=== PATIENT | female | born 1990 | race Caucasian/White ===

== ENCOUNTER 2022-06-04 14:36 | Inpatient (IN) ==
[2022-06-04] MEDS ORDERED: OXYTOCIN 30 UNITS/500 ML BAG IV PRN (15:07)
[2022-06-04] MEDS ORDERED: LIDOCAINE 1% LOCAL 20 ML VIAL INFIL PRN (15:07)
[2022-06-04] MEDS ORDERED: BETAMETH SOD PHOS/ACETATE IA 6 MG/ML IM STA (15:07)
[2022-06-04] MEDS ORDERED: AZITHROMYCIN 250 MG TAB PO ONE (15:09)
[2022-06-04] MEDS ORDERED: AMPICILLIN 2,000 MG in SODIUM CHLOR 0.9% AD-VAN 100 ML IV SCH (15:15)
--- NOTE | 2022-06-04 15:19 | History & Physical Report ---
Date of Service June 04, 2022 Assessment & Plan (1) premature rupture of membranes, unspecified as to length of time between rupture and onset of labor, third trimester: Plan: Admit, routine labs, iv fluids GBS and UDS Betamethasone 12 mg IM every 24 hours x2 doses Azithromycin 1 g p.o., ampicillin 2 g every 6 hours for 48 hours for latency Sold at bedside as she is premature rupture of membranes, that she needs to stay in the hospital until delivery. Routinely restart induction of labor at 34 weeks, which is tomorrow, however due to not having an NICU, ideally if patient is not in labor and makes no cervical change to try to transfer her in the morning. Otherwise we will need to deliver here, and will be transferred after delivery. Discussed the increased risk of infection such as chorioamnionitis. Compared to expectant management until 37 weeks planned early does increase the risk of severe adverse outcomes such as respiratory distress syndrome, need for mechanical ventilation, and admission to NICU and n eonatal . It does not reduce the risk of all outcomes such as sepsis positive blood cultures, and over all mortality or . Per a cog suggests delivery for all patients with PROM greater than 37 weeks either expectant management or immediate delivery for those from 34 0/7 and 36 6/7 with expectant management before 34 weeks. Patient is aware we will move forward with delivery if signs of infection, distress or other maternal or indications (2) Elevated BP without diagnosis of hypertension: Plan: Elevated blood pressure 143/87 on admission, will get PIH labs at this time (3) Rh negative status during in third trimester: (4) Obesity, Class II, BMI 35-39.9: Plan: Last EFW 97th percentile (5) Recurrent loss in patient in third trimester, antepartum: (6) 33 weeks gestation of : History of Present Illness Chief Complaint: [facility] Primary Care Provider: Yokasta Morales DO Patient is a 32-year-old -0-3-0 at 33 weeks and 6 days who presents for leaking of fluid. Patient had called answering service for ongoing vaginal discharge for the last several weeks, but felt big gush of fluid at approximately 1:30 PM. She then describes ongoing leaking of fluid saturating pads afterwards. She called and I informed her to come to labor and delivery. On presentation, noted ongoing clear vaginal discharge with Valsalva and positive nitrazine formed by nursing staff. She denies vaginal bleeding, states she is having cramping but unsure if she is having contractions. Notes good movement. Denies headache, blurry vision, right upper quadrant or epigastric pain. Otherwise feeling well has been complicated by class II obesity, depression with anxiety, recurrent loss and excessive growth on last ultrasound Allergies Allergy/AdvReac Type Severity Reaction Status Date / Time Penicillins Allergy Unknown as a child Verified 04/29/21 14:30 fentanyl AdvReac Mild Insomnia Verified 05/02/21 10:12 Home Medications Medication Instructions Recorded Confirmed Type coenzyme Q10 100 mg capsule 100 mg PO QAM 12/29/20 05/02/21 History (CoQ-10) fluoxetine 40 mg capsule (Prozac) 40 mg PO QAM 12/29/20 05/02/21 History vit no.133-ferrous 1 tab PO QAM 12/29/20 05/02/21 History fumarate 28 mg-folic acid 800 mcg tablet () ibuprofen 600 mg tablet 600 mg PO Q6H #30 tabs 05/02/21 Rx Patient History Medical History Anxiety Depression History of COVID-19 Late Jun or Early July 2020. Headache, sore throat, sinus congestion, fatigue. No current symptoms. No hospitalization Surgical History H/O wisdom tooth extraction History of dilatation and curettage (~12/2020) D&E History of myringotomy BMT Hx of tonsillectomy Family History Other No family history of adverse response to anesthesia Social History Smoking Status: Never smoker Second Hand Exposure: No; Hx Alcohol Use: Yes Hx Substance Use: No Preferred Language: Sami Communication Ability: Effective Aquatics Coordinator Required: No Beliefs That Will Affect Care: None Current Living Situation: Spouse Feels Safe at Home: Yes Assistive Devices: Contacts and Glasses OB History [employer] History See record Review of Systems All systems reviewed & are unremarkable except as noted in HPI & below Physical Exam Constitutional: WD/WN, vitals as above Neck: trachea midline, no thyromegaly Respiratory: normal respiratory effort, lungs clear to auscultation Cardiovascular: RRR, no murmur, no edema Gastrointestinal (Abdomen): normal bowel sounds, soft, nontender, no hepatosplenomegaly Skin: no rashes, warm and dry Genitourinary: Sterile speculum exam: Valsalva positive, hair at cervical os appears to be 4 to 5 cm dilated Nikki, grossly ruptured Cervix: 5/80/-2, no cord felt Results & Data ([facility]) Vital Signs (Past 12 Hours) Vital Signs Pulse BP 06/04/22 14:58 70 143/87 H 06/04/22 14:42 77 160/99 H Laboratory Results Pending Monitoring External Monitor FHT: Baseline 1 35-1 40, moderate variability, positive accelerations no decelerations, category 1 tracing Tocodynamometer Tocometer: Irritable, however after tocometer was adjusted noted contractions every 3 to 4 minutes
[2022-06-04] MEDS ORDERED: NIFEdipine EXTENDED REL 30 MG TABCR PO STA (15:35)
[2022-06-04 15:41] LABS: Hematocrit (blood only) 37.3 % (34.1-44.9); Hemoglobin 12.8 g/dl (12.0-16.0); Mean Corpuscular Hgb Conc 34.3 g/dL (32.0-36.0); Mean Corpuscular Volume 84.6 fL (80.0-100.0); Platelet Count 243 K/uL (130-400); RDW Coefficient of Variation 14.7 % (11.5-14.5); RDW Standard Deviation 45.2 fL (36.4-46.3); Red Blood Count 4.41 M/uL (3.93-5.22); White Blood Count 11.96 K/ul (4.8-10.8)
[2022-06-04] MEDS ORDERED: GENTAMICIN CONSULT ACTIVE PRN (15:47)
[2022-06-04] MEDS: LACTATED RINGER'S 1,000 ML IV PRN ×2 (15:50→17:31)
[2022-06-04 15:56] LABS: Amphetamines+Metham, Urine Neg (Neg); Barbiturates, Urine Neg (Neg); Benzodiazepine, Urine Neg (Neg); Cocaine, Urine Neg (Neg); MDMA (Ecstacy), Urine Neg (Neg); Methadone, Urine Neg (Neg); Opiate, Urine Neg (Neg); Phencyclidine, Urine Neg (Neg); Protein Creatinine Ratio Urine 0.7 (0-0.2)
[2022-06-04 16:06] LABS: Albumin Globulin Ratio 1.1 (0.9-2); Albumin Level 3.4 gm/dl (3.4-5.0); BUN Creatinine Ratio 18.9 (10-20); Bilirubin,Total 0.3 mg/dl (0.2-1.0); Calcium 9.2 mg/dl (8.5-10.1); Creatinine Clr Calc Pharmacy 121.6 ml/min; Est GFR (African American) 98.7 ml/min; Est GFR (Non-African American) 85.2 ml/min; Globulin 3.2 gm/dl (2.5-4.0); Potassium 4.4 mmol/L (3.5-5.1); Total Protein 6.6 gm/dl (6.0-8.3)
[2022-06-04] MEDS: CLINDAMYCIN/D5W 900 MG/50 ML BAG IV SCH (16:18)
--- NOTE | 2022-06-04 16:24 | Labor Progress Brief Note ---
Date of Service June 04, 2022 Subjective Called by nursing that patient had increasing pain 7 out of 10 and pressure Assessment & Plan (1) premature rupture of membranes, unspecified as to length of time between rupture and onset of labor, third trimester: Plan: Patient has made cervical change, and is clement every 1 to 2 minutes. Most likely will be unstable for discharge as it appears that patient is not in labor. Epidural if patient request Anticipate spontaneous vaginal delivery (2) Elevated BP without diagnosis of hypertension: Plan: Elevated blood pressure 143/87 on admission, will get PIH labs at this time Most recent blood pressure 155/80 (3) Rh negative status during in third trimester: (4) Obesity, Class II, BMI 35-39.9: Plan: Last EFW 97th percentile (5) Recurrent loss in patient in third trimester, antepartum: (6) 33 weeks gestation of : Admission and Anticipated Discharge Date Admission Date: June 04, 2022 Physical Exam Genitourinary: heart tracing: Baseline 140, moderate variability, positive accelerations, no decelerations, category 1 tracing Tocometer: Clement every 1 to 2 minutes Cervix: 5-6/80/-2, change from previous cervical exam Results & Data ([facility]) Vital Signs (Past 12 Hours) Vital Signs Temp Pulse Resp BP 06/04/22 16:13 74 155/80 H 06/04/22 15:59 70 147/81 H 06/04/22 15:43 67 153/74 H 06/04/22 15:29 70 154/95 H 06/04/22 15:13 71 143/87 H 06/04/22 14:58 70 143/87 H 06/04/22 14:42 77 160/99 H 06/04/22 14:48 36.7 C 20
[2022-06-04] MEDS ORDERED: GENTAMICIN SULFATE 600 MG in DEXTROSE 5% 100 ML IV SCH (16:30)
[2022-06-04] MEDS ORDERED: ePHEDrine sulfate 50 MG/ML AMP ONE (16:34)
[2022-06-04] MEDS ORDERED: LIDOCAINE 2%/EPINEPHRINE 1:200,000 20 ML SDV ONE (16:34)
[2022-06-04] MEDS ORDERED: fentaNYL citrate 100 MCG/2 ML VIAL ONE (16:34)
[2022-06-04] MEDS ORDERED: SODIUM CHLORIDE 0.9% INJ 10 ML VIAL ONE (16:34)
[2022-06-04] MEDS ORDERED: BUPIVACAINE 0.25% 30 ML VIAL ONE (16:34)
[2022-06-04] MEDS ORDERED: fentaNYL 2MCG/ML ROPIVACAINE 1.25MG/ML 100 ML BAG EPI ONE (16:35)
[2022-06-04] MEDS ORDERED: ONDANSETRON 4 MG OD TAB PO PRN (16:38)
[2022-06-04] MEDS ORDERED: ONDANSETRON INJ 2 MG/ML 2 ML VIAL IV PRN ×2 (16:45→16:57)
[2022-06-04] MEDS ORDERED: ONDANSETRON INJ 2 MG/ML 2 ML VIAL ONE (16:47)
[2022-06-04] MEDS ORDERED: NALOXONE HCL 1 MG in SODIUM CHLORIDE 0.9% 1000ML 1,000 ML IV PRN (16:57)
[2022-06-04] MEDS ORDERED: NALOXONE HCL 0.4 MG/1 ML VIAL/CARP IV PRN (16:57)
[2022-06-04] MEDS ORDERED: ePHEDrine sulfate 50 MG/ML AMP IV PRN (16:57)
[2022-06-04] MEDS ORDERED: NALBUPHINE HCL INJ 10 MG/ML AMP IV PRN (16:57)
[2022-06-04] MEDS ORDERED: diphenhydrAMINE 50 MG/ML VIAL IV PRN (16:57)
--- NOTE | 2022-06-04 16:57 | Anesthesiology Consultation ---
Date of Service June 04, 2022 Assessment & Plan ASA ASA2 Proposed Anesthesia Anesthesia Type: Labor Epidural Risk / Benefits Reviewed With: PT / POA / Parent / Guardian, Accepts Plan and Informed Consent Obtained History Height/Weight Height: 5 ft 7 in Weight: 120.202 kg Allergies Allergy/AdvReac Type Severity Reaction Status Date / Time Penicillins Allergy Severe as a child Verified 06/04/22 16:03 fentanyl AdvReac Mild Insomnia Verified 06/04/22 16:03 Medications Home Medications Medication Instructions Recorded Confirmed Last Taken coenzyme Q10 100 mg capsule 100 mg PO QAM 12/29/20 05/02/21 05/01/21 06:00 (CoQ-10) fluoxetine 40 mg capsule (Prozac) 40 mg PO QAM 12/29/20 06/04/22 06/04/22 0930 vit no.133-ferrous 1 tab PO QAM 12/29/20 06/04/22 06/04/22 fumarate 28 mg-folic acid 800 mcg 0930 tablet () ibuprofen 600 mg tablet 600 mg PO Q6H #30 tabs 05/02/21 Unknown Active Medications Generic Name Dose Route Start Last Admin Trade Name Freq PRN Reason Stop Dose Admin Lactated Ringer's 1,000 mls @ 125 mls/hr 06/04/22 15:07 06/04/22 16:28 Lr IV 06/06/22 15:06 999 mls/hr .Q8H PRN Infusion L&D Protocol Protocol Clindamycin Phosphate 900 mg in 50 mls @ 100 mls/hr 06/04/22 16:00 06/04/22 16:54 Cleocin/D5w IV 06/06/22 15:59 Infused Q8H KAITLIN Infusion Gentamicin Sulfate 600 mg/ 115 mls @ 100 mls/hr 06/04/22 16:30 06/04/22 16:54 Dextrose IV 06/06/22 16:29 100 mls/hr Q24H KAITLIN Administration Protocol Past Medical History Medical History Anxiety Depression History of COVID-19 Late Jun or Early July 2020. Headache, sore throat, sinus congestion, fatigue. No current symptoms. No hospitalization Exercise / Class Metabolic Activity II 4-5 Yardwork/Stairs/Walk up hill Past Family History Family History Other No family history of adverse response to anesthesia Past Surgical History Surgical History H/O wisdom tooth extraction History of dilatation and curettage (~12/2020) D&E History of myringotomy BMT Hx of tonsillectomy Past Anesthesia History No Hx of Anesthesia Complications and No Family Hx of Anesthesia Complications History of PONV No Hx of PONV and No Hx of Motion Sickness Social History Smoking Status: Never smoker Do You Dip or Chew Tobacco: No Hx Alcohol Use: Yes (not currently during ) alcohol intake frequency: a few times a month Hx Substance Use: No substance use type: does not use Review of Systems denies fever/cough/ colds/ chest pain/ SOB/ KATIE denies KATIE Physical Exam Vital Signs Last Vital Signs Temp 36.7 C 06/04/22 14:48 Pulse 72 06/04/22 16:55 Resp 20 06/04/22 14:48 BP 151/72 H 06/04/22 16:44 Pulse Ox 100 06/04/22 16:50 ENMT Mouth: no TMJ abnormality and no dentition abnormality Thyromental Distance: > or= 3.5 Finger Breadths Mallampati Class: II Neck neck extension not limited Respiratory normal respiratory effort; no respiratory distress Auscultation: lungs clear to auscultation bilaterally Cardiovascular Rate/Rhythm: regular rate and regular rhythm Neurologic moves all extremities Psychiatric Orientation: alert and oriented x 3 Testing Laboratory Results 06/04/22 15:18 06/04/22 15:18
[2022-06-04] MEDS ORDERED: MAG SULFATE 4GM BOLUS FROM BAG IV ONE (17:38)
--- NOTE | 2022-06-04 17:41 | Labor Progress Brief Note ---
Date of Service June 04, 2022 Subjective Noted PIH labes AST/ALT over 2x highest level Meeting dx of severe preeclampsia Assessment & Plan (1) premature rupture of membranes, unspecified as to length of time between rupture and onset of labor, third trimester: Plan: Patient has made cervical change, and is clement every 1 to 2 minutes. Most likely will be unstable for discharge as it appears that patient is not in labor. Epidural if patient request Anticipate spontaneous vaginal delivery (2) Elevated BP without diagnosis of hypertension: (3) Rh negative status during in third trimester: (4) Obesity, Class II, BMI 35-39.9: Plan: Last EFW 97th percentile (5) Recurrent loss in patient in third trimester, antepartum: (6) 33 weeks gestation of : (7) Pre-eclampsia, severe, third trimester: Plan: Based on elevated blood pressures with AST ALT greater than 2 times a higher limit, start IV mag sulfate 4 g with 2 g/h Repeat labs every 6 Will order acute hepatitis panel at this time Admission and Anticipated Discharge Date Admission Date: June 04, 2022 Physical Exam Genitourinary: heart tracing: Baseline 130, moderate variability, positive accelerations, no decelerations, category 1 tracing Tocometer: Contractions every 2 minutes Results & Data ([facility]) Vital Signs (Past 12 Hours) Vital Signs Temp Pulse Resp BP Pulse Ox 06/04/22 17:35 97 H 100 06/04/22 17:32 96 H 106/57 L 06/04/22 17:30 101 H 104/60 100 06/04/22 17:28 100 H 109/55 L 06/04/22 17:26 104 H 115/55 L 06/04/22 17:25 104 H 99 06/04/22 17:24 99 H 112/56 L 06/04/22 17:22 99 H 117/58 L 06/04/22 17:20 96 H 126/59 L 100 06/04/22 17:18 96 H 145/86 H 06/04/22 17:15 94 H 100 06/04/22 17:14 88 167/79 H 06/04/22 17:12 90 165/81 H 06/04/22 17:10 88 100 06/04/22 17:11 89 173/85 H 06/04/22 17:05 84 100 06/04/22 17:00 71 100 06/04/22 16:58 72 144/69 H 06/04/22 16:55 72 100 06/04/22 16:50 63 100 06/04/22 16:45 67 100 06/04/22 16:44 69 151/72 H 06/04/22 16:40 70 100 06/04/22 16:28 70 155/84 H 06/04/22 16:13 74 155/80 H 06/04/22 15:59 70 147/81 H 06/04/22 15:43 67 153/74 H 06/04/22 15:29 70 154/95 H 06/04/22 15:13 71 143/87 H 06/04/22 14:58 70 143/87 H 06/04/22 14:42 77 160/99 H 06/04/22 14:48 36.7 C 20
[2022-06-04] MEDS ORDERED: MAGNESIUM SULFATE / WTR 40 GM/1,000 ML BAG IV SCH (17:45)
--- NOTE | 2022-06-04 18:18 | Obstetrical Progress Note ---
Date of Service June 04, 2022 Assessment & Plan (1) premature rupture of membranes, unspecified as to length of time between rupture and onset of labor, third trimester: Plan: Anticipate spontaneous vaginal delivery (2) Rh negative status during in third trimester: (3) Obesity, Class II, BMI 35-39.9: Plan: Last EFW 97th percentile (4) Recurrent loss in patient in third trimester, antepartum: (5) 33 weeks gestation of : (6) Pre-eclampsia, severe, third trimester: Plan: Based on elevated blood pressures with AST ALT greater than 2 times a higher limit, start IV mag sulfate 4 g with 2 g/h Repeat labs every 6hrs Will order acute hepatitis panel at this time Will treat severe range blood pressures with IV antihypertensives Even if patient does not make cervical change, after 34 weeks we will move towards delivering Plan for right upper quadrant liver ultrasound if patient's liver enzymes continue to trend upwards Extensive discussion with patient and her partner, and what is going on as well as the reason for magnesium sulfate. Patient and her partner voiced their understanding and agreement with the plan. All questions answered at the bedside SCDs and Ovalle in place Admission and Anticipated Discharge Date Admission Date: June 04, 2022 Subjective Discussed at length with patient and partner at the bedside about diagnosis of preeclampsia with severe features based on protein creatinine ratio, in addition to elevated liver enzymes. Patient shows her my [facility] and show she previously had antiphospholipid work-up which was negative prior to Physical Exam Constitutional: WD/WN, vitals as above Results & Data ([facility]) Vital Signs (Past 12 Hours) Vital Signs Temp Pulse Resp BP Pulse Ox 06/04/22 18:10 100 06/04/22 18:10 92 H 06/04/22 18:10 93 H 114/69 06/04/22 18:05 89 100 06/04/22 18:04 110/57 L 06/04/22 18:00 98 06/04/22 18:00 91 H 06/04/22 18:00 94 H 114/59 L 06/04/22 17:55 93 H 99 06/04/22 17:53 93 H 106/64 06/04/22 17:50 95 H 100 06/04/22 17:45 100 H 100 06/04/22 17:43 97 H 106/58 L 06/04/22 17:40 36.6 C 97 H 100 06/04/22 17:35 97 H 100 06/04/22 17:32 96 H 106/57 L 06/04/22 17:30 101 H 104/60 100 06/04/22 17:28 100 H 109/55 L 06/04/22 17:26 104 H 115/55 L 06/04/22 17:25 104 H 99 06/04/22 17:24 99 H 112/56 L 06/04/22 17:22 99 H 18 117/58 L 06/04/22 17:20 96 H 126/59 L 100 06/04/22 17:18 96 H 145/86 H 06/04/22 17:15 94 H 100 06/04/22 17:14 88 167/79 H 06/04/22 17:12 90 165/81 H 06/04/22 17:10 88 100 06/04/22 17:11 89 173/85 H 06/04/22 17:05 84 100 06/04/22 17:00 71 100 06/04/22 16:58 72 144/69 H 06/04/22 16:55 72 100 06/04/22 16:50 63 100 06/04/22 16:45 67 100 06/04/22 16:44 69 151/72 H 06/04/22 16:40 70 100 06/04/22 16:28 70 155/84 H 06/04/22 16:13 74 155/80 H 06/04/22 15:59 70 147/81 H 06/04/22 15:43 67 153/74 H 06/04/22 15:29 70 154/95 H 06/04/22 15:13 71 143/87 H 06/04/22 14:58 70 143/87 H 06/04/22 14:42 77 160/99 H 06/04/22 14:48 36.7 C 20 Laboratory Results Laboratory Results WBC 11.96 K/ul (4.8-10.8) H 06/04/22 15:18 RBC 4.41 M/uL (3.93-5.22) 06/04/22 15:18 Hgb 12.8 g/dl (12.0-16.0) 06/04/22 15:18 Hct 37.3 % (34.1-44.9) 06/04/22 15:18 MCV 84.6 fL (80.0-100.0) 06/04/22 15:18 MCH 29.0 pg (25.0-34.0) 06/04/22 15:18 MCHC 34.3 g/dL (32.0-36.0) 06/04/22 15:18 RDW Std Deviation 45.2 fL (36.4-46.3) 06/04/22 15:18 RDW Coeff of [place] 14.7 % (11.5-14.5) H 06/04/22 15:18 Plt Count 243 K/uL (130-400) 06/04/22 15:18 MPV 12.0 fL (9.4-12.3) 06/04/22 15:18 Sodium 136 mmol/L (136-145) 06/04/22 15:18 Potassium 4.4 mmol/L (3.5-5.1) 06/04/22 15:18 Chloride 106 mmol/L (98-107) 06/04/22 15:18 Carbon Dioxide 19 mmol/L (21-32) L 06/04/22 15:18 Anion Gap 11 (3-11) 06/04/22 15:18 BUN 17 mg/dl (6-23) 06/04/22 15:18 Creatinine 0.90 mg/dl (0.6-1.2) 06/04/22 15:18 Est Cr Clr Drug Dosing 121.6 ml/min 06/04/22 15:18 Est GFR ( Amer) 98.7 ml/min 06/04/22 15:18 Est GFR (Non-Af Amer) 85.2 ml/min 06/04/22 15:18 BUN/Creatinine Ratio 18.9 (10-20) 06/04/22 15:18 Glucose 73 mg/dl (70-99(Fasting)) 06/04/22 15:18 Calcium 9.2 mg/dl (8.5-10.1) 06/04/22 15:18 Total Bilirubin 0.3 mg/dl (0.2-1.0) 06/04/22 15:18 AST 349 U/L (13-39) H 06/04/22 15:18 ALT 450 U/L (7-52) H 06/04/22 15:18 Alkaline Phosphatase 139 U/L (34-104) H 06/04/22 15:18 Total Protein 6.6 gm/dl (6.0-8.3) 06/04/22 15:18 Albumin 3.4 gm/dl (3.4-5.0) 06/04/22 15:18 Globulin 3.2 gm/dl (2.5-4.0) 06/04/22 15:18 Albumin/Globulin Ratio 1.1 (0.9-2) 06/04/22 15:18 Ur Random Creatinine 88.0 mg/dl 06/04/22 Unknown U Random Total Protein 64.0 mg/dl (0-11.9) H 06/04/22 Unknown Protein/Creatinin Ratio 0.7 (0-0.2) H 06/04/22 Unknown Urine Opiates Screen Neg (Neg) 06/04/22 Unknown Ur Methadone, Qual Neg (Neg) 06/04/22 Unknown Urine Barbiturates Neg (Neg) 06/04/22 Unknown Ur Phencyclidine (PCP) Neg (Neg) 06/04/22 Unknown U Amphetamin/Meth Scrn Neg (Neg) 06/04/22 Unknown MDMA (Ecstasy) Screen Neg (Neg) 06/04/22 Unknown U Benzodiazepines Scrn Neg (Neg) 06/04/22 Unknown Ur Cocaine Metabolite Neg (Neg) 06/04/22 Unknown U Marijuana (THC) Screen Neg (Neg) 06/04/22 Unknown SARS-CoV-2, RNA, NAAT NEGATIVE (NEGATIVE) 06/04/22 15:05
[2022-06-04 18:22] LABS: Albumin Level 3.4 gm/dl (3.4-5.0); Bilirubin Direct 0.1 mg/dl (0-0.2); Bilirubin,Total 0.3 mg/dl (0.2-1.0); Total Protein 6.5 gm/dl (6.0-8.3)
[2022-06-04] MEDS ORDERED: OR MISCELLANEOUS MED ONE (18:22)
[2022-06-04] MEDS ORDERED: NIFEdipine 10 MG CAP PO SCH (20:00)
--- NOTE | 2022-06-04 21:10 | Labor Progress Brief Note ---
Date of Service June 04, 2022 Subjective Patient is feeling more vaginal pressure, desire to have a bowel movement and movements lower in her abdomen Assessment & Plan (1) premature rupture of membranes, unspecified as to length of time between rupture and onset of labor, third trimester: Plan: Update peds Anticipate spontaneous vaginal delivery (2) Rh negative status during in third trimester: (3) Obesity, Class II, BMI 35-39.9: Plan: Last EFW 97th percentile (4) Recurrent loss in patient in third trimester, antepartum: (5) 33 weeks gestation of : (6) Pre-eclampsia, severe, third trimester: Plan: Based on elevated blood pressures with AST ALT greater than 2 times a higher limit, has received her 4 g bolus, continue mag sulfate at 2 g/h No signs or symptoms of mag tox,, adequate urine output Repeat labs every 6hrs, next labs at midnight acute hepatitis panel ordered Will treat severe range blood pressures with IV antihypertensives Plan for right upper quadrant liver ultrasound if patient's liver enzymes cont inue to trend upwards Extensive discussion with patient and her partner, and what is going on as well as the reason for magnesium sulfate. Patient and her partner voiced their understanding and agreement with the plan. All questions answered at the bedside SCDs and Ovalle in place Admission and Anticipated Discharge Date Admission Date: June 04, 2022 Physical Exam Genitourinary: heart tracing: Baseline 140, moderate variability, positive accelerations, no decelerations, category 1 tracing Tocometer: Contractions every 2 to 3 minutes Cervix: 7/90/-1 Results & Data ([facility]) Vital Signs (Past 12 Hours) Vital Signs Temp Pulse Resp BP Pulse Ox 06/04/22 19:21 37.2 C 18 06/04/22 18:50 18 06/04/22 21:05 96 H 98 06/04/22 21:00 97 H 96 06/04/22 20:57 96 H 136/81 06/04/22 20:55 99 H 96 06/04/22 20:50 105 H 96 06/04/22 20:45 97 H 138/77 96 06/04/22 20:40 100 H 96 06/04/22 20:36 95 H 134/72 06/04/22 20:35 96 H 96 06/04/22 20:30 98 H 96 06/04/22 20:25 98 H 97 06/04/22 20:26 102 H 128/75 06/04/22 20:20 95 H 98 06/04/22 20:15 90 133/73 96 06/04/22 20:10 90 97 06/04/22 20:06 89 135/74 06/04/22 20:05 90 97 06/04/22 20:01 18 06/04/22 20:01 18 06/04/22 20:00 93 H 96 06/04/22 19:55 88 06/04/22 19:55 89 131/70 97 06/04/22 19:50 88 98 06/04/22 19:45 87 98 06/04/22 19:46 86 128/77 06/04/22 19:40 87 99 06/04/22 19:37 88 134/74 06/04/22 19:35 91 H 99 06/04/22 19:30 90 98 06/04/22 19:26 96 H 140/81 06/04/22 19:25 93 H 98 06/04/22 19:20 91 H 99 06/04/22 19:16 90 06/04/22 19:16 143/89 H 06/04/22 19:15 89 99 06/04/22 19:16 88 138/75 06/04/22 19:10 86 99 06/04/22 19:07 85 130/64 06/04/22 19:05 85 100 06/04/22 19:00 90 99 06/04/22 18:55 85 99 06/04/22 18:54 86 131/71 06/04/22 18:50 85 126/68 100 06/04/22 18:45 99 06/04/22 18:45 89 06/04/22 18:45 92 H 119/60 06/04/22 18:40 85 99 06/04/22 18:39 92 H 117/69 06/04/22 18:35 90 100 06/04/22 18:33 87 115/58 L 06/04/22 18:30 89 99 06/04/22 18:29 87 114/56 L 06/04/22 18:25 95 H 99 06/04/22 18:20 95 H 100 06/04/22 18:19 90 107/59 L 06/04/22 18:00 18 06/04/22 18:00 18 06/04/22 17:19 18 06/04/22 17:19 18 06/04/22 17:21 18 06/04/22 17:21 18 06/04/22 18:15 87 18 112/64 100 06/04/22 18:10 100 06/04/22 18:10 92 H 06/04/22 18:10 93 H 114/69 06/04/22 18:05 89 18 100 06/04/22 18:04 110/57 L 06/04/22 18:00 98 06/04/22 18:00 91 H 06/04/22 18:00 94 H 114/59 L 06/04/22 17:55 93 H 99 06/04/22 17:53 93 H 106/64 06/04/22 17:50 95 H 16 100 06/04/22 17:45 100 H 100 06/04/22 17:43 97 H 106/58 L 06/04/22 17:40 36.6 C 97 H 100 06/04/22 17:35 97 H 100 06/04/22 17:32 96 H 106/57 L 06/04/22 17:30 101 H 17 104/60 100 06/04/22 17:28 100 H 109/55 L 06/04/22 17:26 104 H 115/55 L 06/04/22 17:25 104 H 99 06/04/22 17:24 99 H 20 112/56 L 06/04/22 17:22 99 H 18 117/58 L 06/04/22 17:20 96 H 126/59 L 100 06/04/22 17:18 96 H 145/86 H 06/04/22 17:15 94 H 100 06/04/22 17:14 88 167/79 H 06/04/22 17:12 90 165/81 H 06/04/22 17:10 88 100 06/04/22 17:11 89 173/85 H 06/04/22 17:05 84 100 06/04/22 17:00 71 100 06/04/22 16:58 72 144/69 H 06/04/22 16:55 72 100 06/04/22 16:50 63 100 06/04/22 16:45 67 100 06/04/22 16:44 69 151/72 H 06/04/22 16:40 70 100 06/04/22 16:28 70 155/84 H 06/04/22 16:13 74 155/80 H 06/04/22 15:59 70 147/81 H 06/04/22 15:43 67 153/74 H 06/04/22 15:29 70 154/95 H 06/04/22 15:13 71 143/87 H 06/04/22 14:58 70 143/87 H 06/04/22 14:42 77 160/99 H 06/04/22 14:48 36.7 C 20 Laboratory Results Laboratory Results WBC 11.96 K/ul (4.8-10.8) H 06/04/22 15:18 RBC 4.41 M/uL (3.93-5.22) 06/04/22 15:18 Hgb 12.8 g/dl (12.0-16.0) 06/04/22 15:18 Hct 37.3 % (34.1-44.9) 06/04/22 15:18 MCV 84.6 fL (80.0-100.0) 06/04/22 15:18 MCH 29.0 pg (25.0-34.0) 06/04/22 15:18 MCHC 34.3 g/dL (32.0-36.0) 06/04/22 15:18 RDW Std Deviation 45.2 fL (36.4-46.3) 06/04/22 15:18 RDW Coeff of [place] 14.7 % (11.5-14.5) H 06/04/22 15:18 Plt Count 243 K/uL (130-400) 06/04/22 15:18 MPV 12.0 fL (9.4-12.3) 06/04/22 15:18 Sodium 136 mmol/L (136-145) 06/04/22 15:18 Potassium 4.4 mmol/L (3.5-5.1) 06/04/22 15:18 Chloride 106 mmol/L (98-107) 06/04/22 15:18 Carbon Dioxide 19 mmol/L (21-32) L 06/04/22 15:18 Anion Gap 11 (3-11) 06/04/22 15:18 BUN 17 mg/dl (6-23) 06/04/22 15:18 Creatinine 0.90 mg/dl (0.6-1.2) 06/04/22 15:18 Est Cr Clr Drug Dosing 121.6 ml/min 06/04/22 15:18 Est GFR ( Amer) 98.7 ml/min 06/04/22 15:18 Est GFR (Non-Af Amer) 85.2 ml/min 06/04/22 15:18 BUN/Creatinine Ratio 18.9 (10-20) 06/04/22 15:18 Glucose 73 mg/dl (70-99(Fasting)) 06/04/22 15:18 Calcium 9.2 mg/dl (8.5-10.1) 06/04/22 15:18 Total Bilirubin 0.3 mg/dl (0.2-1.0) 06/04/22 17:45 Direct Bilirubin 0.1 mg/dl (0-0.2) 06/04/22 17:45 AST 321 U/L (13-39) H 06/04/22 17:45 ALT 434 U/L (7-52) H 06/04/22 17:45 Alkaline Phosphatase 140 U/L (34-104) H 06/04/22 17:45 Total Protein 6.5 gm/dl (6.0-8.3) 06/04/22 17:45 Albumin 3.4 gm/dl (3.4-5.0) 06/04/22 17:45 Globulin 3.2 gm/dl (2.5-4.0) 06/04/22 15:18 Albumin/Globulin Ratio 1.1 (0.9-2) 06/04/22 15:18 Ur Random Creatinine 88.0 mg/dl 06/04/22 Unknown U Random Total Protein 64.0 mg/dl (0-11.9) H 06/04/22 Unknown Protein/Creatinin Ratio 0.7 (0-0.2) H 06/04/22 Unknown Urine Opiates Screen Neg (Neg) 06/04/22 Unknown Ur Methadone, Qual Neg (Neg) 06/04/22 Unknown Urine Barbiturates Neg (Neg) 06/04/22 Unknown Ur Phencyclidine (PCP) Neg (Neg) 06/04/22 Unknown U Amphetamin/Meth Scrn Neg (Neg) 06/04/22 Unknown MDMA (Ecstasy) Screen Neg (Neg) 06/04/22 Unknown U Benzodiazepines Scrn Neg (Neg) 06/04/22 Unknown Ur Cocaine Metabolite Neg (Neg) 06/04/22 Unknown U Marijuana (THC) Screen Neg (Neg) 06/04/22 Unknown SARS-CoV-2, RNA, NAAT NEGATIVE (NEGATIVE) 06/04/22 15:05
[2022-06-05] MEDS: fentaNYL 2MCG/ML ROPIVACAINE 1.25MG/ML 100 ML BAG EPI PRN ×2 (00:24→07:51)
[2022-06-05] MEDS: CLINDAMYCIN/D5W 900 MG/50 ML BAG IV SCH ×2 (00:26→16:39)
[2022-06-05 01:12] LABS: Hematocrit (blood only) 37.9 % (34.1-44.9); Hemoglobin 12.9 g/dl (12.0-16.0); Mean Corpuscular Hemoglobin 29.6 pg (25.0-34.0); Mean Corpuscular Volume 86.9 fL (80.0-100.0); Mean Platelet Volume 11.6 fL (9.4-12.3); Nucleated RBC # (auto) 0.02 K/uL (0-0); Nucleated RBC % (auto) 0.1 %; Platelet Count 246 K/uL (130-400); RDW Coefficient of Variation 14.9 % (11.5-14.5); RDW Standard Deviation 47.6 fL (36.4-46.3); Red Blood Count 4.36 M/uL (3.93-5.22); White Blood Count 17.93 K/ul (4.8-10.8)
[2022-06-05 01:35] LABS: BUN Creatinine Ratio 17.4 (10-20); Calcium 9.2 mg/dl (8.5-10.1); Creatinine Clr Calc Pharmacy 100.4 ml/min; Est GFR (African American) 78.3 ml/min; Est GFR (Non-African American) 67.6 ml/min; Potassium 4.5 mmol/L (3.5-5.1)
--- NOTE | 2022-06-05 01:44 | Labor Progress Brief Note ---
Date of Service June 05, 2022 Subjective Patient called out for more pressure Assessment & Plan (1) premature rupture of membranes, unspecified as to length of time between rupture and onset of labor, third trimester: Plan: Update peds Anticipate spontaneous vaginal delivery (2) Rh negative status during in third trimester: (3) Obesity, Class II, BMI 35-39.9: Plan: Last EFW 97th percentile (4) Recurrent loss in patient in third trimester, antepartum: (5) 33 weeks gestation of : (6) Pre-eclampsia, severe, third trimester: Plan: Based on elevated blood pressures with AST ALT greater than 2 times a higher limit, has received her 4 g bolus, continue mag sulfate at 2 g/h No signs or symptoms of mag tox,, adequate urine output Repeat labs every 6hrs, next labs at 6 am acute hepatitis panel ordered Will treat severe range blood pressures with IV antihypertensives Plan for right upper quadrant liver ultrasound if patient's liver enzymes continue to trend upwards Extensive discussion with patient and her partner, and what is going on as well as the reason for magnesium sulfate. Patient and her partner voiced their understanding and agreement with the plan. All questions answered at the bedside SCDs and [place] in place Admission and Anticipated Discharge Date Admission Date: June 04, 2022 Physical Exam Genitourinary: heart tracing: Baseline 130, moderate variability, positive accelerations, no decelerations, category 1 tracing Tocometer: Contractions every 2 to 3 minutes Cervix: 9/100/0 station Results & Data ([facility]) Vital Signs (Past 12 Hours) Vital Signs Temp Pulse Resp BP Pulse Ox 06/05/22 01:00 18 06/05/22 00:00 18 06/04/22 23:00 18 06/04/22 21:30 37.1 C 06/04/22 22:00 18 06/04/22 21:00 18 06/04/22 19:21 37.2 C 18 06/04/22 18:50 18 06/05/22 01:40 104 H 96 06/05/22 01:35 100 H 96 06/05/22 01:36 100 H 139/73 06/05/22 01:30 101 H 98 06/05/22 01:27 101 H 131/69 06/05/22 01:25 104 H 98 06/05/22 01:20 99 H 98 06/05/22 01:15 98 H 97 06/05/22 01:16 98 H 160/77 H 06/05/22 01:10 97 H 98 06/05/22 01:06 97 H 145/77 H 06/05/22 01:05 94 H 96 06/05/22 01:00 99 H 97 06/05/22 00:55 96 H 96 06/05/22 00:56 99 H 139/77 06/05/22 00:50 100 H 96 06/05/22 00:45 100 H 97 06/05/22 00:46 100 H 142/75 H 06/05/22 00:40 99 H 97 06/05/22 00:35 99 H 96 06/05/22 00:36 100 H 141/78 H 06/05/22 00:30 102 H 97 06/05/22 00:26 100 H 142/80 H 06/05/22 00:25 98 H 97 06/05/22 00:20 104 H 96 06/05/22 00:15 104 H 97 06/05/22 00:16 102 H 151/74 H 06/05/22 00:10 97 H 98 06/05/22 00:05 101 H 97 06/05/22 00:06 100 H 147/69 H 06/05/22 00:00 101 H 98 06/04/22 23:56 100 H 149/69 H 06/04/22 23:55 100 H 96 06/04/22 23:50 99 H 98 06/04/22 23:45 104 H 98 06/04/22 23:46 105 H 155/73 H 06/04/22 23:40 99 H 97 06/04/22 23:35 101 H 97 06/04/22 23:36 100 H 144/80 H 06/04/22 23:30 98 H 99 06/04/22 23:26 96 H 140/82 06/04/22 23:25 99 H 99 06/04/22 23:20 94 H 97 06/04/22 23:15 95 H 99 06/04/22 23:16 95 H 131/65 06/04/22 23:10 99 H 96 06/04/22 23:05 97 H 98 06/04/22 23:06 99 H 141/74 H 06/04/22 23:00 99 H 97 06/04/22 22:58 99 H 94 06/04/22 22:56 97 H 140/76 06/04/22 22:55 97 H 97 06/04/22 22:50 96 H 95 06/04/22 22:46 97 H 136/70 06/04/22 22:45 97 H 97 06/04/22 22:40 94 H 97 06/04/22 22:35 101 H 95 06/04/22 22:36 98 H 140/76 06/04/22 22:34 100 H 94 06/04/22 22:30 100 H 95 06/04/22 22:25 98 H 95 06/04/22 22:26 97 H 131/73 94 06/04/22 22:20 97 H 94 06/04/22 22:18 98 H 94 06/04/22 22:16 96 H 142/73 H 06/04/22 22:15 96 H 95 06/04/22 22:11 97 H 94 06/04/22 22:10 100 H 95 06/04/22 22:05 97 H 96 06/04/22 22:06 97 H 143/79 H 06/04/22 22:00 103 H 95 06/04/22 21:59 101 H 94 06/04/22 21:55 100 H 96 06/04/22 21:56 98 H 140/81 06/04/22 21:50 101 H 95 06/04/22 21:45 97 H 134/75 95 06/04/22 21:44 96 H 94 06/04/22 21:40 98 H 95 06/04/22 21:36 96 H 138/78 06/04/22 21:35 95 06/04/22 21:35 93 H 06/04/22 21:35 93 H 94 06/04/22 21:30 94 H 96 06/04/22 21:25 93 H 96 06/04/22 21:26 93 H 130/75 06/04/22 21:20 94 H 96 06/04/22 21:16 91 H 136/77 06/04/22 21:15 91 H 98 06/04/22 21:10 93 H 97 06/04/22 21:07 94 H 143/78 H 06/04/22 21:05 96 H 98 06/04/22 21:00 97 H 96 06/04/22 20:57 96 H 136/81 06/04/22 20:55 99 H 96 06/04/22 20:50 105 H 96 06/04/22 20:45 97 H 138/77 96 06/04/22 20:40 100 H 96 06/04/22 20:36 95 H 134/72 06/04/22 20:35 96 H 96 06/04/22 20:30 98 H 96 06/04/22 20:25 98 H 97 06/04/22 20:26 102 H 128/75 06/04/22 20:20 95 H 98 06/04/22 20:15 90 133/73 96 06/04/22 20:10 90 97 06/04/22 20:06 89 135/74 06/04/22 20:05 90 97 06/04/22 20:01 18 06/04/22 20:01 18 06/04/22 20:00 93 H 96 06/04/22 19:55 88 06/04/22 19:55 89 131/70 97 06/04/22 19:50 88 98 06/04/22 19:45 87 98 06/04/22 19:46 86 128/77 06/04/22 19:40 87 99 06/04/22 19:37 88 134/74 06/04/22 19:35 91 H 99 06/04/22 19:30 90 98 06/04/22 19:26 96 H 140/81 06/04/22 19:25 93 H 98 06/04/22 19:20 91 H 99 06/04/22 19:16 90 06/04/22 19:16 143/89 H 06/04/22 19:15 89 99 06/04/22 19:16 88 138/75 06/04/22 19:10 86 99 06/04/22 19:07 85 130/64 06/04/22 19:05 85 100 06/04/22 19:00 90 99 06/04/22 18:55 85 99 06/04/22 18:54 86 131/71 06/04/22 18:50 85 126/68 100 06/04/22 18:45 99 06/04/22 18:45 89 06/04/22 18:45 92 H 119/60 06/04/22 18:40 85 99 06/04/22 18:39 92 H 117/69 06/04/22 18:35 90 100 06/04/22 18:33 87 115/58 L 06/04/22 18:30 89 99 06/04/22 18:29 87 114/56 L 06/04/22 18:25 95 H 99 06/04/22 18:20 95 H 100 06/04/22 18:19 90 107/59 L 06/04/22 18:00 18 06/04/22 18:00 18 06/04/22 17:19 18 06/04/22 17:19 18 06/04/22 17:21 18 06/04/22 17:21 18 06/04/22 18:15 87 18 112/64 100 06/04/22 18:10 100 06/04/22 18:10 92 H 06/04/22 18:10 93 H 114/69 06/04/22 18:05 89 18 100 06/04/22 18:04 110/57 L 06/04/22 18:00 98 06/04/22 18:00 91 H 06/04/22 18:00 94 H 114/59 L 06/04/22 17:55 93 H 99 06/04/22 17:53 93 H 106/64 06/04/22 17:50 95 H 16 100 06/04/22 17:45 100 H 100 06/04/22 17:43 97 H 106/58 L 06/04/22 17:40 36.6 C 97 H 100 06/04/22 17:35 97 H 100 06/04/22 17:32 96 H 106/57 L 06/04/22 17:30 101 H 17 104/60 100 06/04/22 17:28 100 H 109/55 L 06/04/22 17:26 104 H 115/55 L 06/04/22 17:25 104 H 99 06/04/22 17:24 99 H 20 112/56 L 06/04/22 17:22 99 H 18 117/58 L 06/04/22 17:20 96 H 126/59 L 100 06/04/22 17:18 96 H 145/86 H 06/04/22 17:15 94 H 100 06/04/22 17:14 88 167/79 H 06/04/22 17:12 90 165/81 H 06/04/22 17:10 88 100 06/04/22 17:11 89 173/85 H 06/04/22 17:05 84 100 06/04/22 17:00 71 100 06/04/22 16:58 72 144/69 H 06/04/22 16:55 72 100 06/04/22 16:50 63 100 06/04/22 16:45 67 100 06/04/22 16:44 69 151/72 H 06/04/22 16:40 70 100 06/04/22 16:28 70 155/84 H 06/04/22 16:13 74 155/80 H 06/04/22 15:59 70 147/81 H 06/04/22 15:43 67 153/74 H 06/04/22 15:29 70 154/95 H 06/04/22 15:13 71 143/87 H 06/04/22 14:58 70 143/87 H 06/04/22 14:42 77 160/99 H 06/04/22 14:48 36.7 C 20 Laboratory Results Laboratory Results WBC 17.93 K/ul (4.8-10.8) H 06/05/22 00:40 RBC 4.36 M/uL (3.93-5.22) 06/05/22 00:40 Hgb 12.9 g/dl (12.0-16.0) 06/05/22 00:40 Hct 37.9 % (34.1-44.9) 06/05/22 00:40 MCV 86.9 fL (80.0-100.0) 06/05/22 00:40 MCH 29.6 pg (25.0-34.0) 06/05/22 00:40 MCHC 34.0 g/dL (32.0-36.0) 06/05/22 00:40 RDW Std Deviation 47.6 fL (36.4-46.3) H 06/05/22 00:40 RDW Coeff of [place] 14.9 % (11.5-14.5) H 06/05/22 00:40 Plt Count 246 K/uL (130-400) 06/05/22 00:40 MPV 11.6 fL (9.4-12.3) 06/05/22 00:40 Absolute Nucleated RBC 0.02 K/uL (0-0) H 06/05/22 00:40 Nucleated RBC % (auto) 0.1 % 06/05/22 00:40 PT Cancelled 06/05/22 00:40 INR Cancelled 06/05/22 00:40 Sodium 131 mmol/L (136-145) L 06/05/22 00:40 Potassium 4.5 mmol/L (3.5-5.1) 06/05/22 00:40 Chloride 100 mmol/L (98-107) 06/05/22 00:40 Carbon Dioxide 18 mmol/L (21-32) L 06/05/22 00:40 Anion Gap 13 (3-11) H 06/05/22 00:40 BUN 19 mg/dl (6-23) 06/05/22 00:40 Creatinine 1.09 mg/dl (0.6-1.2) 06/05/22 00:40 Est Cr Clr Drug Dosing 100.4 ml/min 06/05/22 00:40 Est GFR ( Amer) 78.3 ml/min 06/05/22 00:40 Est GFR (Non-Af Amer) 67.6 ml/min 06/05/22 00:40 BUN/Creatinine Ratio 17.4 (10-20) 06/05/22 00:40 Glucose 95 mg/dl (70-99(Fasting)) 06/05/22 00:40 Calcium 9.2 mg/dl (8.5-10.1) 06/05/22 00:40 Total Bilirubin 0.3 mg/dl (0.2-1.0) 06/04/22 17:45 Direct Bilirubin 0.1 mg/dl (0-0.2) 06/04/22 17:45 AST 321 U/L (13-39) H 06/04/22 17:45 ALT 434 U/L (7-52) H 06/04/22 17:45 Alkaline Phosphatase 140 U/L (34-104) H 06/04/22 17:45 Total Protein 6.5 gm/dl (6.0-8.3) 06/04/22 17:45 Albumin 3.4 gm/dl (3.4-5.0) 06/04/22 17:45 Globulin 3.2 gm/dl (2.5-4.0) 06/04/22 15:18 Albumin/Globulin Ratio 1.1 (0.9-2) 06/04/22 15:18 Ur Random Creatinine 88.0 mg/dl 06/04/22 Unknown U Random Total Protein 64.0 mg/dl (0-11.9) H 06/04/22 Unknown Protein/Creatinin Ratio 0.7 (0-0.2) H 06/04/22 Unknown Urine Opiates Screen Neg (Neg) 06/04/22 Unknown Ur Methadone, Qual Neg (Neg) 06/04/22 Unknown Urine Barbiturates Neg (Neg) 06/04/22 Unknown Ur Phencyclidine (PCP) Neg (Neg) 06/04/22 Unknown U Amphetamin/Meth Scrn Neg (Neg) 06/04/22 Unknown MDMA (Ecstasy) Screen Neg (Neg) 06/04/22 Unknown U Benzodiazepines Scrn Neg (Neg) 06/04/22 Unknown Ur Cocaine Metabolite Neg (Neg) 06/04/22 Unknown U Marijuana (THC) Screen Neg (Neg) 06/04/22 Unknown SARS-CoV-2, RNA, NAAT NEGATIVE (NEGATIVE) 06/04/22 15:05 Blood Type A Negative 06/04/22 15:18 Antibody Screen NEGATIVE 06/04/22 15:18
[2022-06-05 01:58] LABS: Fibrinogen 448 mg/dl (184-400); INR 0.9 (0.9-1.1); Prothrombin Time 10.1 Seconds (9.0-12.0)
[2022-06-05 02:12] LABS: Albumin Level 3.4 gm/dl (3.4-5.0); Bilirubin,Total 0.3 mg/dl (0.2-1.0); Globulin 3.3 gm/dl (2.5-4.0); Magnesium 6.3 mg/dl (1.7-2.4); Total Protein 6.7 gm/dl (6.0-8.3)
--- NOTE | 2022-06-05 05:18 | Labor Progress Brief Note ---
Date of Service June 05, 2022 Subjective Called by nursing staff as patient felt the desire to push Assessment & Plan (1) premature rupture of membranes, unspecified as to length of time between rupture and onset of labor, third trimester: Plan: Anticipate spontaneous vaginal delivery (2) Rh negative status during in third trimester: (3) Obesity, Class II, BMI 35-39.9: (4) Recurrent loss in patient in third trimester, antepartum: (5) 33 weeks gestation of : (6) Pre-eclampsia, severe, third trimester: Plan: No signs or symptoms of mag toxicity, urine output adequate. Magnesium level 6.3 Creatinine is now 1.09 AST/ALT is now risen to [id number] Not currently and HELLP syndrome, or other signs of acute fatty liver. Coagulation panel and fibrinogen were normal, glucose normal, acute hepatitis panel pending If no improvement in AST ALT after delivery, will need right upper quadrant ultrasound Admission and Anticipated Discharge Date Admission Date: June 04, 2022 Physical Exam Genitourinary: heart tracing: Baseline 130, moderate variability, positive accelerations, no decelerations, category 1 tracing Tocometer: Contractions every 4 to 5 minutes Cervix: ant lip/100/+1 Results & Data ([facility]) Vital Signs (Past 12 Hours) Vital Signs Temp Pulse Resp BP Pulse Ox 06/05/22 05:00 36.9 C 18 06/05/22 05:00 18 06/05/22 04:00 18 06/05/22 03:00 18 06/05/22 02:00 18 06/05/22 01:00 18 06/05/22 00:00 18 06/04/22 23:00 18 06/04/22 21:30 37.1 C 06/04/22 22:00 18 06/04/22 21:00 18 06/04/22 19:21 37.2 C 18 06/04/22 18:50 18 06/05/22 05:10 95 H 97 06/05/22 05:07 99 H 93 06/05/22 05:05 99 H 97 06/05/22 05:02 18 06/05/22 05:02 36.9 C 18 06/05/22 05:00 94 H 96 06/05/22 04:56 94 H 137/62 94 06/05/22 04:55 96 H 96 06/05/22 04:50 95 H 93 06/05/22 04:49 96 H 94 06/05/22 04:47 96 H 137/63 06/05/22 04:45 96 H 97 06/05/22 04:43 98 H 94 06/05/22 04:40 95 H 96 06/05/22 04:35 96 H 94 06/05/22 04:36 95 H 132/63 06/05/22 04:33 93 H 94 06/05/22 04:30 96 H 93 06/05/22 04:28 95 H 94 06/05/22 04:25 93 H 98 06/05/22 04:26 93 H 156/70 H 06/05/22 04:20 97 H 94 06/05/22 04:15 95 H 95 06/05/22 04:16 94 H 151/69 H 06/05/22 04:10 98 H 94 06/05/22 04:09 97 H 94 06/05/22 04:07 37.1 C 06/05/22 04:05 99 H 95 06/05/22 04:06 100 H 148/66 H 06/05/22 04:04 97 H 94 06/05/22 04:00 98 H 93 06/05/22 03:58 99 H 94 06/05/22 03:56 96 H 149/67 H 06/05/22 03:55 96 H 96 06/05/22 03:53 98 H 94 06/05/22 03:50 98 H 95 06/05/22 03:45 95 06/05/22 03:45 98 H 06/05/22 03:46 97 H 168/71 H 06/05/22 03:45 98 H 94 06/05/22 03:40 94 06/05/22 03:40 97 H 06/05/22 03:40 96 H 93 06/05/22 03:35 96 H 94 06/05/22 03:36 93 H 113/55 L 06/05/22 03:31 95 H 94 06/05/22 03:30 96 H 97 06/05/22 03:25 96 H 95 06/05/22 03:26 94 H 143/65 H 94 06/05/22 03:20 95 H 94 06/05/22 03:15 100 H 95 06/05/22 03:16 99 H 144/70 H 06/05/22 03:14 98 H 94 06/05/22 03:10 98 H 94 06/05/22 03:09 99 H 94 06/05/22 03:07 97 H 144/74 H 06/05/22 03:05 98 H 97 06/05/22 03:03 99 H 94 06/05/22 03:00 97 H 96 06/05/22 02:55 97 H 96 06/05/22 02:56 97 H 150/72 H 06/05/22 02:50 99 H 97 06/05/22 02:45 94 H 150/76 H 96 06/05/22 02:40 100 H 95 06/05/22 02:39 99 H 94 06/05/22 02:35 95 H 96 06/05/22 02:36 94 H 134/75 06/05/22 02:30 95 H 96 06/05/22 02:25 94 H 97 06/05/22 02:26 37.0 C 93 H 157/76 H 06/05/22 02:20 94 H 97 06/05/22 02:15 97 H 96 06/05/22 02:16 99 H 146/78 H 06/05/22 02:10 95 H 98 06/05/22 02:05 98 H 97 06/05/22 02:06 98 H 144/79 H 06/05/22 02:00 96 H 95 06/05/22 01:58 97 H 94 06/05/22 01:55 95 H 95 06/05/22 01:56 95 H 142/73 H 06/05/22 01:53 96 H 94 06/05/22 01:50 94 H 96 06/05/22 00:31 37.2 C 06/05/22 01:48 37.1 C 06/05/22 01:47 95 H 137/74 06/05/22 01:45 95 H 96 06/05/22 01:40 104 H 96 06/05/22 01:35 100 H 96 06/05/22 01:36 100 H 139/73 06/05/22 01:30 101 H 98 06/05/22 01:27 101 H 131/69 06/05/22 01:25 104 H 98 06/05/22 01:20 99 H 98 06/05/22 01:15 98 H 97 06/05/22 01:16 98 H 160/77 H 06/05/22 01:10 97 H 98 06/05/22 01:06 97 H 145/77 H 06/05/22 01:05 94 H 96 06/05/22 01:00 99 H 97 06/05/22 00:55 96 H 96 06/05/22 00:56 99 H 139/77 06/05/22 00:50 100 H 96 06/05/22 00:45 100 H 97 06/05/22 00:46 100 H 142/75 H 06/05/22 00:40 99 H 97 06/05/22 00:35 99 H 96 06/05/22 00:36 100 H 141/78 H 06/05/22 00:30 102 H 97 06/05/22 00:26 100 H 142/80 H 06/05/22 00:25 98 H 97 06/05/22 00:20 104 H 96 06/05/22 00:15 104 H 97 06/05/22 00:16 102 H 151/74 H 06/05/22 00:10 97 H 98 06/05/22 00:05 101 H 97 06/05/22 00:06 100 H 147/69 H 06/05/22 00:00 101 H 98 06/04/22 23:56 100 H 149/69 H 06/04/22 23:55 100 H 96 06/04/22 23:50 99 H 98 06/04/22 23:45 104 H 98 06/04/22 23:46 105 H 155/73 H 06/04/22 23:40 99 H 97 06/04/22 23:35 101 H 97 06/04/22 23:36 100 H 144/80 H 06/04/22 23:30 98 H 99 06/04/22 23:26 96 H 140/82 06/04/22 23:25 99 H 99 06/04/22 23:20 94 H 97 06/04/22 23:15 95 H 99 06/04/22 23:16 95 H 131/65 06/04/22 23:10 99 H 96 06/04/22 23:05 97 H 98 06/04/22 23:06 99 H 141/74 H 06/04/22 23:00 99 H 97 06/04/22 22:58 99 H 94 06/04/22 22:56 97 H 140/76 06/04/22 22:55 97 H 97 06/04/22 22:50 96 H 95 06/04/22 22:46 97 H 136/70 06/04/22 22:45 97 H 97 06/04/22 22:40 94 H 97 06/04/22 22:35 101 H 95 06/04/22 22:36 98 H 140/76 06/04/22 22:34 100 H 94 06/04/22 22:30 100 H 95 06/04/22 22:25 98 H 95 06/04/22 22:26 97 H 131/73 94 06/04/22 22:20 97 H 94 06/04/22 22:18 98 H 94 06/04/22 22:16 96 H 142/73 H 06/04/22 22:15 96 H 95 06/04/22 22:11 97 H 94 06/04/22 22:10 100 H 95 06/04/22 22:05 97 H 96 06/04/22 22:06 97 H 143/79 H 06/04/22 22:00 103 H 95 06/04/22 21:59 101 H 94 06/04/22 21:55 100 H 96 06/04/22 21:56 98 H 140/81 06/04/22 21:50 101 H 95 06/04/22 21:45 97 H 134/75 95 06/04/22 21:44 96 H 94 06/04/22 21:40 98 H 95 06/04/22 21:36 96 H 138/78 06/04/22 21:35 95 06/04/22 21:35 93 H 06/04/22 21:35 93 H 94 06/04/22 21:30 94 H 96 06/04/22 21:25 93 H 96 06/04/22 21:26 93 H 130/75 06/04/22 21:20 94 H 96 06/04/22 21:16 91 H 136/77 06/04/22 21:15 91 H 98 06/04/22 21:10 93 H 97 06/04/22 21:07 94 H 143/78 H 06/04/22 21:05 96 H 98 06/04/22 21:00 97 H 96 06/04/22 20:57 96 H 136/81 06/04/22 20:55 99 H 96 06/04/22 20:50 105 H 96 06/04/22 20:45 97 H 138/77 96 06/04/22 20:40 100 H 96 06/04/22 20:36 95 H 134/72 06/04/22 20:35 96 H 96 06/04/22 20:30 98 H 96 06/04/22 20:25 98 H 97 06/04/22 20:26 102 H 128/75 06/04/22 20:20 95 H 98 06/04/22 20:15 90 133/73 96 06/04/22 20:10 90 97 06/04/22 20:06 89 135/74 06/04/22 20:05 90 97 06/04/22 20:01 18 06/04/22 20:01 18 06/04/22 20:00 93 H 96 06/04/22 19:55 88 06/04/22 19:55 89 131/70 97 06/04/22 19:50 88 98 06/04/22 19:45 87 98 06/04/22 19:46 86 128/77 06/04/22 19:40 87 99 06/04/22 19:37 88 134/74 06/04/22 19:35 91 H 99 06/04/22 19:30 90 98 06/04/22 19:26 96 H 140/81 06/04/22 19:25 93 H 98 06/04/22 19:20 91 H 99 06/04/22 19:16 90 06/04/22 19:16 143/89 H 06/04/22 19:15 89 99 06/04/22 19:16 88 138/75 06/04/22 19:10 86 99 06/04/22 19:07 85 130/64 06/04/22 19:05 85 100 06/04/22 19:00 90 99 06/04/22 18:55 85 99 06/04/22 18:54 86 131/71 06/04/22 18:50 85 126/68 100 06/04/22 18:45 99 06/04/22 18:45 89 06/04/22 18:45 92 H 119/60 06/04/22 18:40 85 99 06/04/22 18:39 92 H 117/69 01/15/23 18:35 90 100 06/04/22 18:33 87 115/58 L 06/04/22 18:30 89 99 06/04/22 18:29 87 114/56 L 06/04/22 18:25 95 H 99 06/04/22 18:20 95 H 100 06/04/22 18:19 90 107/59 L 06/04/22 18:00 18 06/04/22 18:00 18 06/04/22 17:19 18 06/04/22 17:19 18 06/04/22 17:21 18 06/04/22 17:21 18 06/04/22 18:15 87 18 112/64 100 06/04/22 18:10 100 06/04/22 18:10 92 H 06/04/22 18:10 93 H 114/69 06/04/22 18:05 89 18 100 06/04/22 18:04 110/57 L 06/04/22 18:00 98 06/04/22 18:00 91 H 06/04/22 18:00 94 H 114/59 L 06/04/22 17:55 93 H 99 06/04/22 17:53 93 H 106/64 06/04/22 17:50 95 H 16 100 06/04/22 17:45 100 H 100 06/04/22 17:43 97 H 106/58 L 06/04/22 17:40 36.6 C 97 H 100 06/04/22 17:35 97 H 100 06/04/22 17:32 96 H 106/57 L 06/04/22 17:30 101 H 17 104/60 100 06/04/22 17:28 100 H 109/55 L 06/04/22 17:26 104 H 115/55 L 06/04/22 17:25 104 H 99 06/04/22 17:24 99 H 20 112/56 L 06/04/22 17:22 99 H 18 117/58 L 06/04/22 17:20 96 H 126/59 L 100 06/04/22 17:18 96 H 145/86 H Laboratory Results Laboratory Results WBC 17.93 K/ul (4.8-10.8) H 06/05/22 00:40 RBC 4.36 M/uL (3.93-5.22) 06/05/22 00:40 Hgb 12.9 g/dl (12.0-16.0) 06/05/22 00:40 Hct 37.9 % (34.1-44.9) 06/05/22 00:40 MCV 86.9 fL (80.0-100.0) 06/05/22 00:40 MCH 29.6 pg (25.0-34.0) 06/05/22 00:40 MCHC 34.0 g/dL (32.0-36.0) 06/05/22 00:40 RDW Std Deviation 47.6 fL (36.4-46.3) H 06/05/22 00:40 RDW Coeff of [place] 14.9 % (11.5-14.5) H 06/05/22 00:40 Plt Count 246 K/uL (130-400) 06/05/22 00:40 MPV 11.6 fL (9.4-12.3) 06/05/22 00:40 Absolute Nucleated RBC 0.02 K/uL (0-0) H 06/05/22 00:40 Nucleated RBC % (auto) 0.1 % 06/05/22 00:40 PT 10.1 Seconds (9.0-12.0) 06/05/22 00:40 PT Cancelled 06/05/22 00:40 INR 0.9 (0.9-1.1) 06/05/22 00:40 INR Cancelled 06/05/22 00:40 Fibrinogen 448 mg/dl (184-400) H 06/05/22 00:40 Sodium 131 mmol/L (136-145) L 06/05/22 00:40 Potassium 4.5 mmol/L (3.5-5.1) 06/05/22 00:40 Chloride 100 mmol/L (98-107) 06/05/22 00:40 Carbon Dioxide 18 mmol/L (21-32) L 06/05/22 00:40 Anion Gap 13 (3-11) H 06/05/22 00:40 BUN 19 mg/dl (6-23) 06/05/22 00:40 Creatinine 1.09 mg/dl (0.6-1.2) 06/05/22 00:40 Est Cr Clr Drug Dosing 100.4 ml/min 06/05/22 00:40 Est GFR ( Amer) 78.3 ml/min 06/05/22 00:40 Est GFR (Non-Af Amer) 67.6 ml/min 06/05/22 00:40 BUN/Creatinine Ratio 17.4 (10-20) 06/05/22 00:40 Glucose 95 mg/dl (70-99(Fasting)) 06/05/22 00:40 Calcium 9.2 mg/dl (8.5-10.1) 06/05/22 00:40 Magnesium 6.3 mg/dl (1.7-2.4) H* 06/05/22 00:40 Total Bilirubin 0.3 mg/dl (0.2-1.0) 06/05/22 00:40 Direct Bilirubin 0.1 mg/dl (0-0.2) 06/04/22 17:45 AST 461 U/L (13-39) H 06/05/22 00:40 ALT 569 U/L (7-52) H 06/05/22 00:40 Alkaline Phosphatase 149 U/L (34-104) H 06/05/22 00:40 Total Protein 6.7 gm/dl (6.0-8.3) 06/05/22 00:40 Albumin 3.4 gm/dl (3.4-5.0) 06/05/22 00:40 Globulin 3.3 gm/dl (2.5-4.0) 06/05/22 00:40 Albumin/Globulin Ratio 1.0 (0.9-2) 06/05/22 00:40 Ur Random Creatinine 88.0 mg/dl 06/04/22 Unknown U Random Total Protein 64.0 mg/dl (0-11.9) H 06/04/22 Unknown Protein/Creatinin Ratio 0.7 (0-0.2) H 06/04/22 Unknown Urine Opiates Screen Neg (Neg) 06/04/22 Unknown Ur Methadone, Qual Neg (Neg) 06/04/22 Unknown Urine Barbiturates Neg (Neg) 06/04/22 Unknown Ur Phencyclidine (PCP) Neg (Neg) 06/04/22 Unknown U Amphetamin/Meth Scrn Neg (Neg) 06/04/22 Unknown MDMA (Ecstasy) Screen Neg (Neg) 06/04/22 Unknown U Benzodiazepines Scrn Neg (Neg) 06/04/22 Unknown Ur Cocaine Metabolite Neg (Neg) 06/04/22 Unknown U Marijuana (THC) Screen Neg (Neg) 06/04/22 Unknown SARS-CoV-2, RNA, NAAT NEGATIVE (NEGATIVE) 06/04/22 15:05 Blood Type A Negative 06/04/22 15:18 Antibody Screen NEGATIVE 06/04/22 15:18
[2022-06-05] MEDS ORDERED: OXYTOCIN 30 UNITS/500 ML BAG IV SCH (06:00)
[2022-06-05 06:04] LABS: Hematocrit (blood only) 36.1 % (34.1-44.9); Hemoglobin 11.9 g/dl (12.0-16.0); Mean Corpuscular Volume 87.8 fL (80.0-100.0); Mean Platelet Volume 11.4 fL (9.4-12.3); Nucleated RBC # (auto) 0.02 K/uL (0-0); Nucleated RBC % (auto) 0.1 %; Platelet Count 244 K/uL (130-400); Red Blood Count 4.11 M/uL (3.93-5.22); White Blood Count 20.95 K/ul (4.8-10.8)
[2022-06-05] MEDS ORDERED: LABETALOL HCL IV 5 MG/ML 20ML IV ONE (06:19)
[2022-06-05] MEDS ORDERED: LABETALOL HCL IV 5 MG/ML 20ML IV STA (06:20)
[2022-06-05 06:37] LABS: BUN Creatinine Ratio 16.4 (10-20); Calcium 8.7 mg/dl (8.5-10.1); Creatinine Clr Calc Pharmacy 85.5 ml/min; Est GFR (African American) 64.5 ml/min; Est GFR (Non-African American) 55.7 ml/min; Potassium 4.2 mmol/L (3.5-5.1)
[2022-06-05 06:46] LABS: Albumin Globulin Ratio 1.2 (0.9-2); Albumin Level 3.5 gm/dl (3.4-5.0); Bilirubin,Total 0.4 mg/dl (0.2-1.0); Globulin 2.9 gm/dl (2.5-4.0); Magnesium 7.9 mg/dl (1.7-2.4); Total Protein 6.4 gm/dl (6.0-8.3)
[2022-06-05] MEDS: LACTATED RINGER'S 1,000 ML IV PRN (07:15)
--- NOTE | 2022-06-05 07:22 | Labor Progress Brief Note ---
Date of Service June 05, 2022 Subjective Been pushing with patient at bedside for for over last hour Assessment & Plan (1) premature rupture of membranes, unspecified as to length of time between rupture and onset of labor, third trimester: Plan: Continue with pit for augmentation Anticipate spontaneous vaginal delivery (2) Rh negative status during in third trimester: (3) Obesity, Class II, BMI 35-39.9: (4) Recurrent loss in patient in third trimester, antepartum: (5) 33 weeks gestation of : (6) Pre-eclampsia, severe, third trimester: Plan: No signs or symptoms of mag toxicity, urine output adequate. Magnesium level 7.9 Creatinine 1.09->1.28 Decrease Mag to 1gr hr, repeat labs at 12 oclock AST/ALT: 461/569->421/511 Not currently and HELLP syndrome, or other signs of acute fatty liver. Coagulation panel and fibrinogen were normal, glucose normal, acute hepatitis panel pending If no improvement in AST ALT after delivery, will need right upper quadrant ultrasound Admission and Anticipated Discharge Date Admission Date: June 04, 2022 Physical Exam Genitourinary: FHT: baseline 130, mod variability, no accels, no decels, cat i Toxo: q10 min pit at 6miu/hr cx:10/100/+2 OP Results & Data ([facility]) Vital Signs (Past 12 Hours) Vital Signs Temp Pulse Resp BP Pulse Ox 06/05/22 05:00 36.9 C 18 06/05/22 05:00 18 06/05/22 04:00 18 06/05/22 03:00 18 06/05/22 02:00 18 06/05/22 01:00 18 06/05/22 00:00 18 06/04/22 23:00 18 06/04/22 21:30 37.1 C 06/04/22 22:00 18 06/04/22 21:00 18 06/04/22 19:21 37.2 C 18 06/05/22 07:15 87 92 06/05/22 07:16 86 129/57 L 06/05/22 07:13 89 94 06/05/22 07:10 90 96 06/05/22 07:05 92 H 96 06/05/22 07:06 90 135/63 06/05/22 07:02 91 H 86 L 06/05/22 07:00 89 96 06/05/22 06:55 89 97 06/05/22 06:56 89 132/61 06/05/22 06:50 97 H 93 06/05/22 06:49 92 H 88 L 06/05/22 06:47 96 H 142/63 H 06/05/22 06:45 94 H 97 06/05/22 06:46 94 H 138/62 06/05/22 06:40 98 H 96 06/05/22 06:39 95 H 90 06/05/22 06:35 93 H 93 06/05/22 06:36 91 H 133/60 06/05/22 06:32 36.9 C 95 H 94 06/05/22 06:31 18 06/05/22 06:31 18 06/05/22 06:30 95 H 96 06/05/22 06:16 20 06/05/22 06:16 20 06/05/22 06:01 20 06/05/22 06:01 20 06/05/22 06:26 93 H 129/59 L 94 06/05/22 06:25 93 H 96 06/05/22 06:20 96 06/05/22 06:20 98 H 06/05/22 06:20 96 H 136/84 06/05/22 06:18 98 H 93 06/05/22 06:17 98 H 177/74 H 06/05/22 06:15 98 H 174/74 H 97 06/05/22 06:10 98 H 97 06/05/22 06:07 98 H 94 06/05/22 06:05 99 H 97 06/05/22 06:00 97 H 97 06/05/22 05:59 97 H 86 L 06/05/22 05:55 97 H 97 06/05/22 05:52 90 91 06/05/22 05:50 99 H 97 06/05/22 05:45 100 H 97 06/05/22 05:46 100 H 159/70 H 06/05/22 05:44 95 H 92 06/05/22 05:40 97 H 97 06/05/22 05:35 96 H 97 06/05/22 05:36 96 H 149/68 H 06/05/22 05:30 90 97 06/05/22 05:25 91 H 96 06/05/22 05:26 90 134/60 06/05/22 05:21 92 H 94 06/05/22 05:20 91 H 96 06/05/22 05:17 94 H 133/59 L 06/05/22 05:15 91 H 95 06/05/22 05:10 95 H 97 06/05/22 05:07 99 H 93 06/05/22 05:05 99 H 97 06/05/22 05:02 18 06/05/22 05:02 36.9 C 18 06/05/22 05:00 94 H 96 06/05/22 04:56 94 H 137/62 94 06/05/22 04:55 96 H 96 06/05/22 04:50 95 H 93 06/05/22 04:49 96 H 94 06/05/22 04:47 96 H 137/63 06/05/22 04:45 96 H 97 06/05/22 04:43 98 H 94 06/05/22 04:40 95 H 96 06/05/22 04:35 96 H 94 06/05/22 04:36 95 H 132/63 06/05/22 04:33 93 H 94 06/05/22 04:30 96 H 93 06/05/22 04:28 95 H 94 06/05/22 04:25 93 H 98 06/05/22 04:26 93 H 156/70 H 06/05/22 04:20 97 H 94 06/05/22 04:15 95 H 95 06/05/22 04:16 94 H 151/69 H 06/05/22 04:10 98 H 94 06/05/22 04:09 97 H 94 06/05/22 04:07 37.1 C 06/05/22 04:05 99 H 95 06/05/22 04:06 100 H 148/66 H 06/05/22 04:04 97 H 94 06/05/22 04:00 98 H 93 06/05/22 03:58 99 H 94 06/05/22 03:56 96 H 149/67 H 06/05/22 03:55 96 H 96 06/05/22 03:53 98 H 94 06/05/22 03:50 98 H 95 06/05/22 03:45 95 06/05/22 03:45 98 H 06/05/22 03:46 97 H 168/71 H 06/05/22 03:45 98 H 94 06/05/22 03:40 94 06/05/22 03:40 97 H 06/05/22 03:40 96 H 93 06/05/22 03:35 96 H 94 06/05/22 03:36 93 H 113/55 L 06/05/22 03:31 95 H 94 06/05/22 03:30 96 H 97 06/05/22 03:25 96 H 95 06/05/22 03:26 94 H 143/65 H 94 06/05/22 03:20 95 H 94 06/05/22 03:15 100 H 95 06/05/22 03:16 99 H 144/70 H 06/05/22 03:14 98 H 94 06/05/22 03:10 98 H 94 06/05/22 03:09 99 H 94 06/05/22 03:07 97 H 144/74 H 06/05/22 03:05 98 H 97 06/05/22 03:03 99 H 94 06/05/22 03:00 97 H 96 06/05/22 02:55 97 H 96 06/05/22 02:56 97 H 150/72 H 06/05/22 02:50 99 H 97 06/05/22 02:45 94 H 150/76 H 96 06/05/22 02:40 100 H 95 06/05/22 02:39 99 H 94 06/05/22 02:35 95 H 96 06/05/22 02:36 94 H 134/75 06/05/22 02:30 95 H 96 06/05/22 02:25 94 H 97 06/05/22 02:26 37.0 C 93 H 157/76 H 06/05/22 02:20 94 H 97 06/05/22 02:15 97 H 96 06/05/22 02:16 99 H 146/78 H 06/05/22 02:10 95 H 98 06/05/22 02:05 98 H 97 06/05/22 02:06 98 H 144/79 H 06/05/22 02:00 96 H 95 06/05/22 01:58 97 H 94 06/05/22 01:55 95 H 95 06/05/22 01:56 95 H 142/73 H 06/05/22 01:53 96 H 94 06/05/22 01:50 94 H 96 06/05/22 00:31 37.2 C 06/05/22 01:48 37.1 C 06/05/22 01:47 95 H 137/74 06/05/22 01:45 95 H 96 06/05/22 01:40 104 H 96 06/05/22 01:35 100 H 96 06/05/22 01:36 100 H 139/73 06/05/22 01:30 101 H 98 06/05/22 01:27 101 H 131/69 06/05/22 01:25 104 H 98 06/05/22 01:20 99 H 98 06/05/22 01:15 98 H 97 06/05/22 01:16 98 H 160/77 H 06/05/22 01:10 97 H 98 06/05/22 01:06 97 H 145/77 H 06/05/22 01:05 94 H 96 06/05/22 01:00 99 H 97 06/05/22 00:55 96 H 96 06/05/22 00:56 99 H 139/77 06/05/22 00:50 100 H 96 06/05/22 00:45 100 H 97 06/05/22 00:46 100 H 142/75 H 06/05/22 00:40 99 H 97 06/05/22 00:35 99 H 96 06/05/22 00:36 100 H 141/78 H 06/05/22 00:30 102 H 97 06/05/22 00:26 100 H 142/80 H 06/05/22 00:25 98 H 97 06/05/22 00:20 104 H 96 06/05/22 00:15 104 H 97 06/05/22 00:16 102 H 151/74 H 06/05/22 00:10 97 H 98 06/05/22 00:05 101 H 97 06/05/22 00:06 100 H 147/69 H 06/05/22 00:00 101 H 98 06/04/22 23:56 100 H 149/69 H 06/04/22 23:55 100 H 96 06/04/22 23:50 99 H 98 06/04/22 23:45 104 H 98 06/04/22 23:46 105 H 155/73 H 06/04/22 23:40 99 H 97 06/04/22 23:35 101 H 97 06/04/22 23:36 100 H 144/80 H 06/04/22 23:30 98 H 99 06/04/22 23:26 96 H 140/82 06/04/22 23:25 99 H 99 06/04/22 23:20 94 H 97 06/04/22 23:15 95 H 99 06/04/22 23:16 95 H 131/65 06/04/22 23:10 99 H 96 06/04/22 23:05 97 H 98 06/04/22 23:06 99 H 141/74 H 06/04/22 23:00 99 H 97 06/04/22 22:58 99 H 94 06/04/22 22:56 97 H 140/76 06/04/22 22:55 97 H 97 06/04/22 22:50 96 H 95 06/04/22 22:46 97 H 136/70 06/04/22 22:45 97 H 97 06/04/22 22:40 94 H 97 06/04/22 22:35 101 H 95 06/04/22 22:36 98 H 140/76 06/04/22 22:34 100 H 94 06/04/22 22:30 100 H 95 06/04/22 22:25 98 H 95 06/04/22 22:26 97 H 131/73 94 06/04/22 22:20 97 H 94 06/04/22 22:18 98 H 94 06/04/22 22:16 96 H 142/73 H 06/04/22 22:15 96 H 95 06/04/22 22:11 97 H 94 06/04/22 22:10 100 H 95 06/04/22 22:05 97 H 96 06/04/22 22:06 97 H 143/79 H 06/04/22 22:00 103 H 95 06/04/22 21:59 101 H 94 06/04/22 21:55 100 H 96 06/04/22 21:56 98 H 140/81 06/04/22 21:50 101 H 95 06/04/22 21:45 97 H 134/75 95 06/04/22 21:44 96 H 94 06/04/22 21:40 98 H 95 06/04/22 21:36 96 H 138/78 06/04/22 21:35 95 06/04/22 21:35 93 H 06/04/22 21:35 93 H 94 06/04/22 21:30 94 H 96 06/04/22 21:25 93 H 96 06/04/22 21:26 93 H 130/75 06/04/22 21:20 94 H 96 06/04/22 21:16 91 H 136/77 06/04/22 21:15 91 H 98 06/04/22 21:10 93 H 97 06/04/22 21:07 94 H 143/78 H 06/04/22 21:05 96 H 98 06/04/22 21:00 97 H 96 06/04/22 20:57 96 H 136/81 06/04/22 20:55 99 H 96 06/04/22 20:50 105 H 96 06/04/22 20:45 97 H 138/77 96 06/04/22 20:40 100 H 96 06/04/22 20:36 95 H 134/72 06/04/22 20:35 96 H 96 06/04/22 20:30 98 H 96 06/04/22 20:25 98 H 97 06/04/22 20:26 102 H 128/75 06/04/22 20:20 95 H 98 06/04/22 20:15 90 133/73 96 06/04/22 20:10 90 97 06/04/22 20:06 89 135/74 06/04/22 20:05 90 97 06/04/22 20:01 18 06/04/22 20:01 18 06/04/22 20:00 93 H 96 06/04/22 19:55 88 06/04/22 19:55 89 131/70 97 06/04/22 19:50 88 98 06/04/22 19:45 87 98 06/04/22 19:46 86 128/77 06/04/22 19:40 87 99 06/04/22 19:37 88 134/74 06/04/22 19:35 91 H 99 06/04/22 19:30 90 98 06/04/22 19:26 96 H 140/81 06/04/22 19:25 93 H 98 06/04/22 19:20 91 H 99 Laboratory Results Laboratory Results WBC 20.95 K/ul (4.8-10.8) H 06/05/22 05:53 RBC 4.11 M/uL (3.93-5.22) 06/05/22 05:53 Hgb 11.9 g/dl (12.0-16.0) L 06/05/22 05:53 Hct 36.1 % (34.1-44.9) 06/05/22 05:53 MCV 87.8 fL (80.0-100.0) 06/05/22 05:53 MCH 29.0 pg (25.0-34.0) 06/05/22 05:53 MCHC 33.0 g/dL (32.0-36.0) 06/05/22 05:53 RDW Std Deviation 49.0 fL (36.4-46.3) H 06/05/22 05:53 RDW Coeff of [place] 15.0 % (11.5-14.5) H 06/05/22 05:53 Plt Count 244 K/uL (130-400) 06/05/22 05:53 MPV 11.4 fL (9.4-12.3) 06/05/22 05:53 Absolute Nucleated RBC 0.02 K/uL (0-0) H 06/05/22 05:53 Nucleated RBC % (auto) 0.1 % 06/05/22 05:53 PT 10.1 Seconds (9.0-12.0) 06/05/22 00:40 PT Cancelled 06/05/22 00:40 INR 0.9 (0.9-1.1) 06/05/22 00:40 INR Cancelled 06/05/22 00:40 Fibrinogen 448 mg/dl (184-400) H 06/05/22 00:40 Sodium 130 mmol/L (136-145) L 06/05/22 05:53 Potassium 4.2 mmol/L (3.5-5.1) 06/05/22 05:53 Chloride 97 mmol/L (98-107) L 06/05/22 05:53 Carbon Dioxide 18 mmol/L (21-32) L 06/05/22 05:53 Anion Gap 15 (3-11) H 06/05/22 05:53 BUN 21 mg/dl (6-23) 06/05/22 05:53 Creatinine 1.28 mg/dl (0.6-1.2) H 06/05/22 05:53 Est Cr Clr Drug Dosing 85.5 ml/min 06/05/22 05:53 Est GFR ( Amer) 64.5 ml/min 06/05/22 05:53 Est GFR (Non-Af Amer) 55.7 ml/min 06/05/22 05:53 BUN/Creatinine Ratio 16.4 (10-20) 06/05/22 05:53 Glucose 110 mg/dl (70-99(Fasting)) H 06/05/22 05:53 Calcium 8.7 mg/dl (8.5-10.1) 06/05/22 05:53 Magnesium 7.9 mg/dl (1.7-2.4) H* 06/05/22 05:53 Total Bilirubin 0.4 mg/dl (0.2-1.0) 06/05/22 05:53 Direct Bilirubin 0.1 mg/dl (0-0.2) 06/04/22 17:45 AST 421 U/L (13-39) H 06/05/22 05:53 ALT 511 U/L (7-52) H 06/05/22 05:53 Alkaline Phosphatase 142 U/L (34-104) H 06/05/22 05:53 Total Protein 6.4 gm/dl (6.0-8.3) 06/05/22 05:53 Albumin 3.5 gm/dl (3.4-5.0) 06/05/22 05:53 Globulin 2.9 gm/dl (2.5-4.0) 06/05/22 05:53 Albumin/Globulin Ratio 1.2 (0.9-2) 06/05/22 05:53 Ur Random Creatinine 88.0 mg/dl 06/04/22 Unknown U Random Total Protein 64.0 mg/dl (0-11.9) H 06/04/22 Unknown Protein/Creatinin Ratio 0.7 (0-0.2) H 06/04/22 Unknown Urine Opiates Screen Neg (Neg) 06/04/22 Unknown Ur Methadone, Qual Neg (Neg) 06/04/22 Unknown Urine Barbiturates Neg (Neg) 06/04/22 Unknown Ur Phencyclidine (PCP) Neg (Neg) 06/04/22 Unknown U Amphetamin/Meth Scrn Neg (Neg) 06/04/22 Unknown MDMA (Ecstasy) Screen Neg (Neg) 06/04/22 Unknown U Benzodiazepines Scrn Neg (Neg) 06/04/22 Unknown Ur Cocaine Metabolite Neg (Neg) 06/04/22 Unknown U Marijuana (THC) Screen Neg (Neg) 06/04/22 Unknown SARS-CoV-2, RNA, NAAT NEGATIVE (NEGATIVE) 06/04/22 15:05 Blood Type A Negative 06/04/22 15:18 Antibody Screen NEGATIVE 06/04/22 15:18
[2022-06-05] MEDS ORDERED: CLINDAMYCIN/D5W 900 MG/50 ML BAG IV ONE (08:45)
[2022-06-05] MEDS ORDERED: Nursing to Pharmacy Communication SCH ×2 (09:45→12:45)
[2022-06-05] MEDS ORDERED: miSOPROStoL 200 MCG TAB ONE (09:51)
[2022-06-05] MEDS ORDERED: CARBOPROST TROMETHAMINE 250 MCG/ML AMPUL ONE (09:52)
[2022-06-05] MEDS ORDERED: SODIUM CHLORIDE 0.9% 250 ML IV PRN (09:55)
[2022-06-05 09:58] LABS: Appearance Urine Cloudy (Clear); Bacteria Urine Automated Negative (Negative); Bilirubin Urine 1+ (Negative); Blood Urine 3+ (Negative); Color Urine Red; Glucose Urine UA Negative (Negative); Ketones Urine Negative (Negative); Leukocyte Esterase Urine 1+ (Negative); Nitrite Urine Positive (Negative); Protein Urine 2+ (Negative); RBC Urine Automated >30 /hpf (0-4); Specific Gravity Urine 1.013 (1.000-1.030); Urobilinogen Urine Negative (Negative)
[2022-06-05 10:21] LABS: Basophils # (auto) 0.04 K/uL (0-0.2); Basophils % (auto) 0.2 %; Hematocrit (blood only) 32.1 % (34.1-44.9); Immature Granulocytes # (auto) 0.46 K/uL (0.00-0.02); Immature Granulocytes % (auto) 2.1 %; Lymphocytes # (auto) 2.48 K/uL (1.2-3.4); Lymphocytes % (auto) 11.4 %; Mean Corpuscular Hemoglobin 29.6 pg (25.0-34.0); Mean Corpuscular Hgb Conc 34.3 g/dL (32.0-36.0); Mean Corpuscular Volume 86.5 fL (80.0-100.0); Mean Platelet Volume 11.7 fL (9.4-12.3); Monocytes # (auto) 1.36 K/uL (0.24-0.82); Monocytes % (auto) 6.2 %; Neutrophils # (auto) 17.44 K/uL (1.4-6.5); Neutrophils % (auto) 80.1 %; Platelet Count 219 K/uL (130-400); RDW Coefficient of Variation 14.9 % (11.5-14.5); RDW Standard Deviation 47.3 fL (36.4-46.3); Red Blood Count 3.71 M/uL (3.93-5.22); White Blood Count 21.78 K/ul (4.8-10.8)
[2022-06-05] MEDS: FLUoxetine HCL 20 MG CAP PO SCH (10:22)
[2022-06-05 10:24] LABS: Creatinine Urine Random 57.8 mg/dl; Protein Creatinine Ratio Urine 5.2 (0-0.2); Total Protein Urine Random 303.1 mg/dl (0-11.9)
--- NOTE | 2022-06-05 10:33 | Delivery Summary ---
Vaginal Delivery Summary Date of Service June 05, 2022 Vaginal Delivery Summary I got sign out from Dr. Escobar this morning about this patient who is 32-year-old G1, P0 at 33 weeks of gestation, admitted for PPROM and preeclampsia with severe features, elevated liver enzymes and creatinine. She has been on IV magnesium for seizure for prophylaxis which was decreased to 1 g/h due to increasing mag level and creatinine. She has been fully dilated since 5 AM but her contractions were every 9 to 10 minutes it took a while for her to push the baby. She was started on IV Pitocin to augment her contractions. When I came in her nurse was draining her bladder and urine looked very dark almost like brown- black in color. I consulted nephrology for possible HUS and he recommended me to consult hematology to. Pitocin was increased to 14 mIU/units and she pushed through few more contr actions and delivered the head without difficulty. The shoulders were delivered with minimal traction and there was a nuchal cord around the neck x1 which was reduced and baby was handed to the mother, cleaned and dried, the mouth and nose were suctioned and the cord was clamped x2 and cut at 30 second delay. Baby was moving and crying at that point. Then he was taking by nursery team including Dr. Avitia. The time of delivery was at 090 4 AM. Then the vagina and perineum were checked for lacerations. There was a small but second-degree laceration at the posterior fourchette and there was first- degree right labial laceration and periurethral laceration. The perineal laceration was repaired with 2-0 Vicryl in a running fashion. It was oozing blood and multiple [id number] stitches were placed to stop the bleeding. It was hemostatic. Then the labial laceration was repaired with 3-0 Vicryl on SH needle and it was hemostatic. Then a Ovalle catheter was placed into the bladder and the periurethral laceration was also repaired with 3-0 Vicryl with [id number] stitches x2 and it was hemostatic. Then we waited for the placenta for 30 minutes but it was still attached. And we then massaged the uterus and waited another 10 minutes and placenta was still attached. Then epidural settings were increased and patient pushed on pain but some and she was comfortable for me to go in manually and deliver the placenta. I performed bedside ultrasound first and confirmed that the placenta is anterior location. Then with my right hand in the uterus placenta was held and attached from anterior wall twist around o'clock position and delivered completely. Then I examined the uterus and cavity was empty with some blood clots toes were emptied uterus was massaged IV oxytocin was started and rectal Cytotec was given to help to stop the bleeding. Bedside ultrasound is repeated and uterine cavity was empty with thin regular endometrium forming complete delivery of the placenta. Then she was given to 50 mcg of Hemabate and uterus was massaged and it was firm and bleeding stopped. The placenta was examined and appeared to be complete with all the cotyledons and membranes, it was sent to the pathology. Vagina was checked again and some of the oozing spots were repaired with [id number] stitches and it was hemostatic. The mom and baby tolerated procedure well. The sponge needle instrument count was correct x2. He was taken to nursery by pediatric team and mom is stable. I was present during whole procedure.
[2022-06-05] MEDS ORDERED: HYDROCORTISONE ACETATE 25 MG SUPP PR PRN (10:34)
[2022-06-05] MEDS ORDERED: BENZOCAINE 20% AER SPR 82.5 GM CAN EXT PRN (10:34)
[2022-06-05] MEDS ORDERED: bisacodyL 10 MG SUPP PR PRN (10:34)
[2022-06-05] MEDS ORDERED: DIPHTHERIA/TETANUS/PERTUSSIS 0.5mL SYR/VIAL (Age 7+yrs) IM ONE (10:34)
[2022-06-05] MEDS ORDERED: IBUPROFEN 600 MG TAB PO PRN (10:34)
[2022-06-05] MEDS ORDERED: OXYTOCIN 30 UNITS/500 ML BAG IV PRN (10:34)
[2022-06-05] MEDS ORDERED: ACETAMINOPHEN 325 MG TAB PO PRN (10:34)
[2022-06-05 10:43] LABS: Albumin Globulin Ratio 1.2 (0.9-2); BUN Creatinine Ratio 15.8 (10-20); Bilirubin,Total 0.4 mg/dl (0.2-1.0); Calcium 7.8 mg/dl (8.5-10.1); Creatinine Clr Calc Pharmacy 82.3 ml/min; Est GFR (African American) 61.6 ml/min; Est GFR (Non-African American) 53.1 ml/min; Globulin 2.6 gm/dl (2.5-4.0); Potassium 4.3 mmol/L (3.5-5.1); Total Protein 5.6 gm/dl (6.0-8.3)
[2022-06-05 10:56] LABS: Fibrinogen 332 mg/dl (184-400); Partial Thromboplastin Ratio 0.9; Partial Thromboplastin Time 23.9 Seconds (21.0-31.0); Prothrombin Time 10.3 Seconds (9.0-12.0)
--- NOTE | 2022-06-05 11:10 | Anesthesia Procedure Note ---
Date of Service June 05, 2022 Anesthesia Post Epidural Note Vital Signs Vital Signs: Temp Pulse Resp BP Pulse Ox 97.7 F 80 16 130/60 96 06/05/22 10:00 06/05/22 11:06 06/05/22 10:45 06/05/22 11:06 06/05/22 11:06 Pain Intensity Abdomen: Pain Intensity: 0 Notes Mental Status: alert / awake / arousable and participated in evaluation Nausea / Vomiting: adequately controlled Pain: adequately controlled Airway Patency, RR, SpO2: stable & adequate BP & HR: stable & adequate Hydration State: stable & adequate Neuraxial Anesthesia: was administered and sensory block is resolving Anesthetic Complications: no major complications apparent and Pt Satisfied with anesthetic care Epidural: Removed without complications and With tip intact
[2022-06-05 11:49] LABS: Reticulocyte % 2.3 % (0.5-2.0); Reticulocytes # 0.08 10^6/uL (0.02-0.10)
[2022-06-05 11:53] LABS: CO2 Cord Arterial Blood 53 mmHg (39.1-73.5); HCO3 Cord Arterial Blood 19 mmol/L (19.7-28.5); Oxygen Sat Cord Arterial Blood < 60.0 % (<60); PO2 Cord Arterial Blood 30 mmHg (4.1-31.7); pH Cord Arterial Blood 7.16 (7.1-7.38)
[2022-06-05 11:54] LABS: Cord Venous Blood HCO3 18 mmol/L (18.4-26.8); Cord Venous Blood PCO2 39 mmHg (30.4-57.2); Cord Venous Blood PO2 36 mmHg (14.1-43.3); Cord Venous Blood pH 7.26 (7.20-7.44); O2 Saturation Cord Venous Bld 71.8 % (<68)
[2022-06-05] MEDS ORDERED: LABETALOL HCL IV 5 MG/ML 20ML IV PRN (11:58)
[2022-06-05] MEDS ORDERED: oxyCODONE HCL IR 5 MG TAB (IMMEDIATE RELEASE) PO PRN (12:00)
--- NOTE | 2022-06-05 12:25 | Obstetrical Progress Note ---
Date of Service June 05, 2022 Assessment & Plan Admission and Anticipated Discharge Date Admission Date: June 04, 2022 Subjective Patient is seen with Lead Qa Analyst, Dr Mcrae. She feels better since delivery. No H/A/ Change in visio/ N&V/ Epig or RUQ pain. Urine is getting more clear, pink to light red, about 300 ml in bag VSS Afebrile She seems better clinically, just came from nursery, baby is being transferred to [facility]. All Recommendations from Nephrology are noted and orders were changed. Will stop IV Magnesium and H/L IV Strick I/O's BP control with IV Labetalol as needed Repeat labs at 6 pm AB's I spoke with hematology who does not think she has HUS, he recommended Peripheral smear Continue to monitor closely Results & Data ([facility]) Vital Signs (Past 12 Hours) Vital Signs Temp Pulse Resp BP Pulse Ox 06/05/22 11:00 16 06/05/22 10:45 16 06/05/22 10:30 18 06/05/22 10:15 18 06/05/22 10:00 36.5 C 18 06/05/22 07:10 36.7 C 18 06/05/22 05:00 36.9 C 18 06/05/22 05:00 18 06/05/22 04:00 18 06/05/22 03:00 18 06/05/22 02:00 18 06/05/22 01:00 18 06/05/22 12:16 77 98 06/05/22 12:11 87 97 06/05/22 12:06 83 97 06/05/22 12:01 82 98 06/05/22 11:16 77 97 06/05/22 11:15 76 124/58 L 06/05/22 11:11 77 97 06/05/22 11:06 96 06/05/22 11:06 80 06/05/22 11:06 75 130/60 06/05/22 11:01 80 96 06/05/22 10:56 79 97 06/05/22 10:55 80 135/62 06/05/22 10:51 78 97 06/05/22 10:47 78 94 06/05/22 10:46 79 95 06/05/22 10:45 78 125/58 L 06/05/22 10:41 81 96 06/05/22 10:36 80 96 06/05/22 10:35 77 127/58 L 06/05/22 10:31 81 96 06/05/22 10:26 97 06/05/22 10:26 83 06/05/22 10:26 80 128/56 L 06/05/22 10:21 82 98 06/05/22 10:16 85 139/66 95 06/05/22 10:11 87 96 06/05/22 10:06 96 06/05/22 10:06 83 06/05/22 10:06 82 140/65 06/05/22 10:01 83 99 06/05/22 09:56 97 06/05/22 09:56 89 06/05/22 09:56 88 134/63 06/05/22 09:51 91 H 96 06/05/22 09:46 87 136/64 06/05/22 09:43 83 98 06/05/22 09:38 85 99 06/05/22 09:36 87 132/59 L 06/05/22 09:35 87 93 06/05/22 09:33 87 100 06/05/22 09:28 88 97 06/05/22 09:26 88 129/60 06/05/22 09:23 91 H 96 06/05/22 09:18 89 100 06/05/22 09:16 88 129/58 L 06/05/22 09:13 91 H 100 06/05/22 09:09 92 H 86 L 06/05/22 09:05 104 H 96 06/05/22 09:06 95 H 134/63 06/05/22 09:03 93 H 92 06/05/22 09:00 89 99 06/05/22 08:57 88 145/87 H 91 06/05/22 08:55 89 96 06/05/22 08:51 83 93 06/05/22 08:50 82 97 06/05/22 08:45 85 96 06/05/22 08:46 84 131/60 06/05/22 08:44 84 89 L 06/05/22 08:40 82 97 06/05/22 08:37 79 86 L 06/05/22 08:36 81 129/59 L 06/05/22 08:35 80 98 06/05/22 08:30 84 18 98 06/05/22 08:28 80 89 L 06/05/22 08:25 84 98 06/05/22 08:26 85 132/62 06/05/22 08:20 83 85 L 06/05/22 08:17 80 132/61 06/05/22 08:15 84 96 06/05/22 08:13 85 92 06/05/22 08:10 83 97 06/05/22 07:31 18 06/05/22 07:31 18 06/05/22 08:01 18 06/05/22 08:01 18 06/05/22 08:06 86 141/65 H 06/05/22 08:05 87 96 06/05/22 08:00 81 95 06/05/22 07:59 84 94 06/05/22 07:55 84 95 06/05/22 07:56 84 124/58 L 06/05/22 07:50 91 H 83 L 06/05/22 07:45 90 96 06/05/22 07:46 89 136/61 06/05/22 07:43 94 06/05/22 07:40 91 H 96 06/05/22 07:38 85 94 06/05/22 07:36 85 136/59 L 06/05/22 07:35 85 94 06/05/22 07:32 86 93 06/05/22 07:30 91 H 96 06/05/22 07:25 90 95 06/05/22 07:26 89 142/63 H 06/05/22 07:20 89 96 06/05/22 07:18 88 94 06/05/22 07:15 87 92 06/05/22 07:16 86 129/57 L 06/05/22 07:13 89 94 06/05/22 07:10 90 96 06/05/22 07:05 92 H 96 06/05/22 07:06 90 135/63 06/05/22 07:02 91 H 86 L 06/05/22 07:00 89 96 06/05/22 06:55 89 97 06/05/22 06:56 89 132/61 06/05/22 06:50 97 H 93 06/05/22 06:49 92 H 88 L 06/05/22 06:47 96 H 142/63 H 06/05/22 06:45 94 H 97 06/05/22 06:46 94 H 138/62 06/05/22 06:40 98 H 96 06/05/22 06:39 95 H 90 06/05/22 06:35 93 H 93 06/05/22 06:36 91 H 133/60 06/05/22 06:32 36.9 C 95 H 94 06/05/22 06:31 18 06/05/22 06:31 18 06/05/22 06:30 95 H 96 06/05/22 06:16 20 06/05/22 06:16 20 06/05/22 06:01 20 06/05/22 06:01 20 06/05/22 06:26 93 H 129/59 L 94 06/05/22 06:25 93 H 96 06/05/22 06:20 96 06/05/22 06:20 98 H 06/05/22 06:20 96 H 136/84 06/05/22 06:18 98 H 93 06/05/22 06:17 98 H 177/74 H 06/05/22 06:15 98 H 174/74 H 97 06/05/22 06:10 98 H 97 06/05/22 06:07 98 H 94 06/05/22 06:05 99 H 97 06/05/22 06:00 97 H 97 06/05/22 05:59 97 H 86 L 06/05/22 05:55 97 H 97 06/05/22 05:52 90 91 06/05/22 05:50 99 H 97 06/05/22 05:45 100 H 97 06/05/22 05:46 100 H 159/70 H 06/05/22 05:44 95 H 92 06/05/22 05:40 97 H 97 06/05/22 05:35 96 H 97 06/05/22 05:36 96 H 149/68 H 06/05/22 05:30 90 97 06/05/22 05:25 91 H 96 06/05/22 05:26 90 134/60 06/05/22 05:21 92 H 94 06/05/22 05:20 91 H 96 06/05/22 05:17 94 H 133/59 L 06/05/22 05:15 91 H 95 06/05/22 05:10 95 H 97 06/05/22 05:07 99 H 93 06/05/22 05:05 99 H 97 06/05/22 05:02 18 06/05/22 05:02 36.9 C 18 06/05/22 05:00 94 H 96 06/05/22 04:56 94 H 137/62 94 06/05/22 04:55 96 H 96 06/05/22 04:50 95 H 93 06/05/22 04:49 96 H 94 06/05/22 04:47 96 H 137/63 06/05/22 04:45 96 H 97 06/05/22 04:43 98 H 94 06/05/22 04:40 95 H 96 06/05/22 04:35 96 H 94 06/05/22 04:36 95 H 132/63 06/05/22 04:33 93 H 94 06/05/22 04:30 96 H 93 06/05/22 04:28 95 H 94 06/05/22 04:25 93 H 98 06/05/22 04:26 93 H 156/70 H 06/05/22 04:20 97 H 94 06/05/22 04:15 95 H 95 06/05/22 04:16 94 H 151/69 H 06/05/22 04:10 98 H 94 06/05/22 04:09 97 H 94 06/05/22 04:07 37.1 C 06/05/22 04:05 99 H 95 06/05/22 04:06 100 H 148/66 H 06/05/22 04:04 97 H 94 06/05/22 04:00 98 H 93 06/05/22 03:58 99 H 94 06/05/22 03:56 96 H 149/67 H 06/05/22 03:55 96 H 96 06/05/22 03:53 98 H 94 06/05/22 03:50 98 H 95 06/05/22 03:45 95 06/05/22 03:45 98 H 06/05/22 03:46 97 H 168/71 H 06/05/22 03:45 98 H 94 06/05/22 03:40 94 06/05/22 03:40 97 H 06/05/22 03:40 96 H 93 06/05/22 03:35 96 H 94 06/05/22 03:36 93 H 113/55 L 06/05/22 03:31 95 H 94 06/05/22 03:30 96 H 97 06/05/22 03:25 96 H 95 06/05/22 03:26 94 H 143/65 H 94 06/05/22 03:20 95 H 94 06/05/22 03:15 100 H 95 06/05/22 03:16 99 H 144/70 H 06/05/22 03:14 98 H 94 06/05/22 03:10 98 H 94 06/05/22 03:09 99 H 94 06/05/22 03:07 97 H 144/74 H 06/05/22 03:05 98 H 97 06/05/22 03:03 99 H 94 06/05/22 03:00 97 H 96 06/05/22 02:55 97 H 96 06/05/22 02:56 97 H 150/72 H 06/05/22 02:50 99 H 97 06/05/22 02:45 94 H 150/76 H 96 06/05/22 02:40 100 H 95 06/05/22 02:39 99 H 94 06/05/22 02:35 95 H 96 06/05/22 02:36 94 H 134/75 06/05/22 02:30 95 H 96 06/05/22 02:25 94 H 97 06/05/22 02:26 37.0 C 93 H 157/76 H 06/05/22 02:20 94 H 97 06/05/22 02:15 97 H 96 06/05/22 02:16 99 H 146/78 H 06/05/22 02:10 95 H 98 06/05/22 02:05 98 H 97 06/05/22 02:06 98 H 144/79 H 06/05/22 02:00 96 H 95 06/05/22 01:58 97 H 94 06/05/22 01:55 95 H 95 06/05/22 01:56 95 H 142/73 H 06/05/22 01:53 96 H 94 06/05/22 01:50 94 H 96 06/05/22 00:31 37.2 C 06/05/22 01:48 37.1 C 06/05/22 01:47 95 H 137/74 06/05/22 01:45 95 H 96 06/05/22 01:40 104 H 96 06/05/22 01:35 100 H 96 06/05/22 01:36 100 H 139/73 06/05/22 01:30 101 H 98 06/05/22 01:27 101 H 131/69 06/05/22 01:25 104 H 98 06/05/22 01:20 99 H 98 06/05/22 01:15 98 H 97 06/05/22 01:16 98 H 160/77 H 06/05/22 01:10 97 H 98 06/05/22 01:06 97 H 145/77 H 06/05/22 01:05 94 H 96 06/05/22 01:00 99 H 97 06/05/22 00:55 96 H 96 06/05/22 00:56 99 H 139/77 06/05/22 00:50 100 H 96 06/05/22 00:45 100 H 97 06/05/22 00:46 100 H 142/75 H 06/05/22 00:40 99 H 97 06/05/22 00:35 99 H 96 06/05/22 00:36 100 H 141/78 H 06/05/22 00:30 102 H 97 06/05/22 00:26 100 H 142/80 H 06/05/22 00:25 98 H 97
[2022-06-05 12:36] LABS: Bacteria Urine Automated Negative (Negative); RBC Urine Automated >30 /hpf (0-4)
[2022-06-05 13:05] LABS: BUN Creatinine Ratio 16.4 (10-20); Calcium 7.8 mg/dl (8.5-10.1); Creatinine Clr Calc Pharmacy 85.5 ml/min; Est GFR (African American) 64.5 ml/min; Est GFR (Non-African American) 55.7 ml/min; Potassium 4.1 mmol/L (3.5-5.1)
[2022-06-05 13:10] LABS: Creatinine Urine Random 13.1 mg/dl; Protein Creatinine Ratio Urine 1.2 (0-0.2); Total Protein Urine Random 15.5 mg/dl (0-11.9)
[2022-06-05 13:40] LABS: Albumin Globulin Ratio 1.1 (0.9-2); Albumin Level 3.1 gm/dl (3.4-5.0); Bilirubin,Total 0.4 mg/dl (0.2-1.0); Globulin 2.7 gm/dl (2.5-4.0); Magnesium Therapeutic L&D Only 6.9 mg/dL (4.0-8.0); Total Protein 5.8 gm/dl (6.0-8.3)
--- NOTE | 2022-06-05 14:02 | Nephrology Consultation ---
Date of Consultation June 05, 2022 Assessment & Plan (1) Acute kidney injury: Marshall[place] 2/ preeclampsia/Drug induced/ Sepsis/ATN/ Cortical necrosis. -AFLP is also on the DD but her Bilirubin is wnl and she is not hypogycemic, Agree with Hepatitis screen, would add Ammonia. She would need abdominal ultrasound. - Davidley MAHA/HUS/TTP as her co-agulation profile, platelet, fibrinogen is wnl and she is alert and oriented.Agree with Hematology consult. - Ordered YOANA screen including Complements, ANCA, LES, DSdna, anti phospholipid antibody with urine microscopy, Urine and blood culture. - USS renal, U/a - Strict input and output, Her Oral intake in good. Recommend Oral fluids,( UOP + 500 mls), If UOP> 3 Lit, start on 1/2 NS+ d5w , replacing 2/3 of Urine output. - Expect her renal function to decline before getting better. - Pls avoid all Nephrotoxics, NSAIds, no more gentamicin. - Can use OXYcodone for analgesia. - Magnesium levels are high, d/c magnesium infusion , use labetelol PRN IV if needed - She is allergic to penicillin, would consult ID for gram negative cover, PLease renal dose all antibiotics. (2) Elevated liver enzymes: (3) Pre-eclampsia, severe, third trimester: (4) 33 weeks gestation of : History of Present Illness Reason for Consultation: Acute kidney injury, Preeclampsia Attending Physician: Sonja Salgado MD, PhD History of Present Illness 32-year-old G1, P0 at 33 weeks of gestation, admitted for PPROM and preeclampsia with severe features. Mallorie had normal vaginal delivery this am. She was found to have " dark coloured urine" with Yoana ( SCr 1.3 , normal as baseline), with raised WCC, normal platelets and normal co-agulation profile with elevated liver enzymes, normal biluribin and elevated blood sugar.She has been on Magesium for preeclampsia and had Abx including Gentamicin.There were concerns from the Obs team regarding HUS and Nephrology and hematology was cons ulted. I saw the mallorie post delivery. She was alert , oriented and cheerful. She denies any medical problems in the past. She did not have preconception HTN and has not been on any anti hypertensive agents in the past.Denied any rash, small joint pain or repeated UTI's during pregnency.She did c/o " some pedal edema" during pregnency.She had 3 abortions in the past 2 of which were in 6 weeks of pregnency, , she has antiphospholipid work -up which was negative.She dose not give me a h/o early pregnency loses in her family except her mother, who had a ectopic pregnency resulting in , She very Ocassionally uses Aleve. She has good UOP, which looks blood tinged, BP has been well controlled post delivery. Allergies Allergy/AdvReac Type Severity Reaction Status Date / Time Penicillins Allergy Severe as a child Verified 06/04/22 16:03 fentanyl AdvReac Mild Insomnia Verified 06/04/22 16:03 Home Medications Medication Instructions Recorded Confirmed Type fluoxetine 40 mg capsule (Prozac) 40 mg PO QAM 12/29/20 06/04/22 History vit no.133-ferrous 1 tab PO QAM 12/29/20 06/05/22 History fumarate 28 mg-folic acid 800 mcg tablet () Patient History Medical History (Updated 06/05/22 @ 14:17 by Sarai Oliveros MD) Anxiety Depression Elevated BP without diagnosis of hypertension History of COVID-19 Late Jun or Early July 2020. Headache, sore throat, sinus congestion, fatigue. No current symptoms. No hospitalization Rash of face Surgical History H/O wisdom tooth extraction History of dilatation and curettage (~12/2020) D&E History of myringotomy BMT Hx of tonsillectomy Family History Other No family history of adverse response to anesthesia Social History Smoking Status: Never smoker Second Hand Exposure: No; Do You Dip or Chew Tobacco: No; Tobacco Cessation Education Requested by Patient: No Hx Alcohol Use: Yes (not currently during ) Hx Substance Use: No Preferred Language: Tajik Communication Ability: Effective [employer] Sticker Required: No Beliefs That Will Affect Care: None marital status: Current Living Situation: Spouse Current Living Situation Comment: - Nathan Other Information That Helps Us Care for You: No Feels Safe at Home: Yes Safety Concerns: Feels Safe At This Time Assistive Devices: None Review of Systems Review of Systems: All systems reviewed & are unremarkable except as noted in HPI & below Physical Exam Physical Exam: Physical Exam--General: Alert and no distress Head: No masses, lesions, tenderness or abnormalities Nose: no mucosal erythema, no mucosal edema Oropharynx: mucous membranes are moist Neck: supple, no JVD Heart: regular rate & rhythm, no murmurs and no gallops Lungs: normal respiratory rate and rhythm, lungs clear to auscultation Abdomen: abdomen soft, non-tender Back: No CVA tenderness Extremities: No edema Results & Data ([facility]) Vital Signs (Past 12 Hours) Vital Signs Temp Pulse Resp BP Pulse Ox 06/05/22 13:00 18 06/05/22 12:00 18 06/05/22 11:30 18 06/05/22 11:00 16 06/05/22 10:45 16 06/05/22 10:30 18 06/05/22 10:15 18 06/05/22 10:00 36.5 C 18 06/05/22 07:10 36.7 C 18 06/05/22 05:00 36.9 C 18 06/05/22 05:00 18 06/05/22 04:00 18 06/05/22 03:00 18 06/05/22 02:00 18 06/05/22 13:51 66 100 06/05/22 13:46 71 100 06/05/22 13:41 71 100 06/05/22 13:36 67 100 06/05/22 13:31 99 06/05/22 13:31 69 06/05/22 13:31 73 84 L 06/05/22 13:26 73 99 06/05/22 13:21 71 99 06/05/22 13:16 71 100 06/05/22 13:17 71 118/56 L 06/05/22 13:11 73 100 06/05/22 13:06 74 99 06/05/22 13:01 74 98 06/05/22 12:56 82 99 06/05/22 12:51 81 100 06/05/22 12:47 93 06/05/22 12:47 84 06/05/22 12:46 77 100 06/05/22 12:47 80 132/65 06/05/22 12:41 78 99 06/05/22 12:36 82 99 06/05/22 12:31 80 99 06/05/22 12:26 82 98 06/05/22 12:21 74 97 06/05/22 12:16 77 98 06/05/22 12:11 87 97 06/05/22 12:06 83 97 06/05/22 12:01 82 98 06/05/22 11:16 77 97 06/05/22 11:15 76 124/58 L 06/05/22 11:11 77 97 06/05/22 11:06 96 06/05/22 11:06 80 06/05/22 11:06 75 130/60 06/05/22 11:01 80 96 06/05/22 10:56 79 97 06/05/22 10:55 80 135/62 06/05/22 10:51 78 97 06/05/22 10:47 78 94 06/05/22 10:46 79 95 06/05/22 10:45 78 125/58 L 06/05/22 10:41 81 96 06/05/22 10:36 80 96 06/05/22 10:35 77 127/58 L 06/05/22 10:31 81 96 06/05/22 10:26 97 06/05/22 10:26 83 06/05/22 10:26 80 128/56 L 06/05/22 10:21 82 98 06/05/22 10:16 85 139/66 95 06/05/22 10:11 87 96 06/05/22 10:06 96 06/05/22 10:06 83 06/05/22 10:06 82 140/65 06/05/22 10:01 83 99 06/05/22 09:56 97 06/05/22 09:56 89 06/05/22 09:56 88 134/63 06/05/22 09:51 91 H 96 06/05/22 09:46 87 136/64 06/05/22 09:43 83 98 06/05/22 09:38 85 99 06/05/22 09:36 87 132/59 L 06/05/22 09:35 87 93 06/05/22 09:33 87 100 06/05/22 09:28 88 97 06/05/22 09:26 88 129/60 06/05/22 09:23 91 H 96 06/05/22 09:18 89 100 06/05/22 09:16 88 129/58 L 06/05/22 09:13 91 H 100 06/05/22 09:09 92 H 86 L 06/05/22 09:05 104 H 96 06/05/22 09:06 95 H 134/63 06/05/22 09:03 93 H 92 06/05/22 09:00 89 99 06/05/22 08:57 88 145/87 H 91 06/05/22 08:55 89 96 06/05/22 08:51 83 93 06/05/22 08:50 82 97 06/05/22 08:45 85 96 06/05/22 08:46 84 131/60 06/05/22 08:44 84 89 L 06/05/22 08:40 82 97 06/05/22 08:37 79 86 L 06/05/22 08:36 81 129/59 L 06/05/22 08:35 80 98 06/05/22 08:30 84 18 98 06/05/22 08:28 80 89 L 06/05/22 08:25 84 98 06/05/22 08:26 85 132/62 06/05/22 08:20 83 85 L 06/05/22 08:17 80 132/61 06/05/22 08:15 84 96 06/05/22 08:13 85 92 06/05/22 08:10 83 97 06/05/22 07:31 18 06/05/22 07:31 18 06/05/22 08:01 18 06/05/22 08:01 18 06/05/22 08:06 86 141/65 H 06/05/22 08:05 87 96 06/05/22 08:00 81 95 06/05/22 07:59 84 94 06/05/22 07:55 84 95 06/05/22 07:56 84 124/58 L 06/05/22 07:50 91 H 83 L 06/05/22 07:45 90 96 06/05/22 07:46 89 136/61 06/05/22 07:43 94 06/05/22 07:40 91 H 96 06/05/22 07:38 85 94 06/05/22 07:36 85 136/59 L 06/05/22 07:35 85 94 01/16/23 07:32 86 93 06/05/22 07:30 91 H 96 06/05/22 07:25 90 95 06/05/22 07:26 89 142/63 H 06/05/22 07:20 89 96 06/05/22 07:18 88 94 06/05/22 07:15 87 92 06/05/22 07:16 86 129/57 L 06/05/22 07:13 89 94 06/05/22 07:10 90 96 06/05/22 07:05 92 H 96 06/05/22 07:06 90 135/63 06/05/22 07:02 91 H 86 L 06/05/22 07:00 89 96 06/05/22 06:55 89 97 06/05/22 06:56 89 132/61 06/05/22 06:50 97 H 93 06/05/22 06:49 92 H 88 L 06/05/22 06:47 96 H 142/63 H 06/05/22 06:45 94 H 97 06/05/22 06:46 94 H 138/62 06/05/22 06:40 98 H 96 06/05/22 06:39 95 H 90 06/05/22 06:35 93 H 93 06/05/22 06:36 91 H 133/60 06/05/22 06:32 36.9 C 95 H 94 06/05/22 06:31 18 06/05/22 06:31 18 06/05/22 06:30 95 H 96 06/05/22 06:16 20 06/05/22 06:16 20 06/05/22 06:01 20 06/05/22 06:01 20 06/05/22 06:26 93 H 129/59 L 94 06/05/22 06:25 93 H 96 06/05/22 06:20 96 06/05/22 06:20 98 H 06/05/22 06:20 96 H 136/84 06/05/22 06:18 98 H 93 06/05/22 06:17 98 H 177/74 H 06/05/22 06:15 98 H 174/74 H 97 06/05/22 06:10 98 H 97 06/05/22 06:07 98 H 94 06/05/22 06:05 99 H 97 06/05/22 06:00 97 H 97 06/05/22 05:59 97 H 86 L 06/05/22 05:55 97 H 97 06/05/22 05:52 90 91 06/05/22 05:50 99 H 97 06/05/22 05:45 100 H 97 06/05/22 05:46 100 H 159/70 H 06/05/22 05:44 95 H 92 06/05/22 05:40 97 H 97 06/05/22 05:35 96 H 97 06/05/22 05:36 96 H 149/68 H 06/05/22 05:30 90 97 06/05/22 05:25 91 H 96 06/05/22 05:26 90 134/60 06/05/22 05:21 92 H 94 06/05/22 05:20 91 H 96 06/05/22 05:17 94 H 133/59 L 06/05/22 05:15 91 H 95 06/05/22 05:10 95 H 97 06/05/22 05:07 99 H 93 06/05/22 05:05 99 H 97 06/05/22 05:02 18 06/05/22 05:02 36.9 C 18 06/05/22 05:00 94 H 96 06/05/22 04:56 94 H 137/62 94 06/05/22 04:55 96 H 96 06/05/22 04:50 95 H 93 06/05/22 04:49 96 H 94 06/05/22 04:47 96 H 137/63 06/05/22 04:45 96 H 97 06/05/22 04:43 98 H 94 06/05/22 04:40 95 H 96 06/05/22 04:35 96 H 94 06/05/22 04:36 95 H 132/63 06/05/22 04:33 93 H 94 06/05/22 04:30 96 H 93 06/05/22 04:28 95 H 94 06/05/22 04:25 93 H 98 06/05/22 04:26 93 H 156/70 H 06/05/22 04:20 97 H 94 06/05/22 04:15 95 H 95 06/05/22 04:16 94 H 151/69 H 06/05/22 04:10 98 H 94 06/05/22 04:09 97 H 94 06/05/22 04:07 37.1 C 06/05/22 04:05 99 H 95 06/05/22 04:06 100 H 148/66 H 06/05/22 04:04 97 H 94 06/05/22 04:00 98 H 93 06/05/22 03:58 99 H 94 06/05/22 03:56 96 H 149/67 H 06/05/22 03:55 96 H 96 06/05/22 03:53 98 H 94 06/05/22 03:50 98 H 95 06/05/22 03:45 95 06/05/22 03:45 98 H 06/05/22 03:46 97 H 168/71 H 06/05/22 03:45 98 H 94 06/05/22 03:40 94 06/05/22 03:40 97 H 06/05/22 03:40 96 H 93 06/05/22 03:35 96 H 94 06/05/22 03:36 93 H 113/55 L 06/05/22 03:31 95 H 94 06/05/22 03:30 96 H 97 06/05/22 03:25 96 H 95 06/05/22 03:26 94 H 143/65 H 94 06/05/22 03:20 95 H 94 06/05/22 03:15 100 H 95 06/05/22 03:16 99 H 144/70 H 06/05/22 03:14 98 H 94 06/05/22 03:10 98 H 94 06/05/22 03:09 99 H 94 06/05/22 03:07 97 H 144/74 H 06/05/22 03:05 98 H 97 06/05/22 03:03 99 H 94 06/05/22 03:00 97 H 96 06/05/22 02:55 97 H 96 06/05/22 02:56 97 H 150/72 H 06/05/22 02:50 99 H 97 06/05/22 02:45 94 H 150/76 H 96 06/05/22 02:40 100 H 95 06/05/22 02:39 99 H 94 06/05/22 02:35 95 H 96 06/05/22 02:36 94 H 134/75 06/05/22 02:30 95 H 96 06/05/22 02:25 94 H 97 06/05/22 02:26 37.0 C 93 H 157/76 H 06/05/22 02:20 94 H 97 06/05/22 02:15 97 H 96 06/05/22 02:16 99 H 146/78 H 06/05/22 02:10 95 H 98 06/05/22 02:05 98 H 97 06/05/22 02:06 98 H 144/79 H 06/05/22 02:00 96 H 95 06/05/22 01:58 97 H 94 06/05/22 01:55 95 H 95 06/05/22 01:56 95 H 142/73 H Laboratory Results 06/05/22 10:06 06/05/22 12:02
[2022-06-05] MEDS: CIPROFLOXACIN / D5W 400 MG/200 ML BAG IV SCH (14:29)
--- NOTE | 2022-06-05 14:36 | Ultrasound Report ---
US renal/blad retro comp CLINICAL HISTORY: Melvin, concerns for cortical necrosis post delivery TECHNIQUE: Multiple sonographic real-time images of the kidneys and bladder were obtained. COMPARISON: None available at the time of this dictation. FINDINGS: The right kidney measures 12.0 cm in length, and the left kidney measures 12.3 cm in length. The right kidney is normal in size, contour, cortical thickness, and echogenicity. No hydronephrosis is identified. No renal lesion is identified. No perinephric fluid collection is seen. The left kidney is normal in size, contour, cortical thickness and echogenicity. No hydronephrosis i s identified. No renal lesion is identified. No perinephric fluid collection is seen. The bladder is partially distended. No large intraluminal mass is seen. IMPRESSION: Unremarkable examination and in particular no evidence of hydronephrosis. No ultrasonic evidence of c ortical necrosis. ACT 112: Negative or not required by law. Electronically signed by: Alec Worley M.D. 06/05/2022 2:34 PM
[2022-06-05] MEDS ORDERED: BETAMETH SOD PHOS/ACETATE IA 6 MG/ML IM SCH (15:15)
[2022-06-05] MEDS: FERROUS SULFATE 325 MG TAB PO SCH (15:46)
[2022-06-05 18:04] LABS: Basophils # (auto) 0.02 K/uL (0-0.2); Basophils % (auto) 0.1 %; Hematocrit (blood only) 28.6 % (34.1-44.9); Hemoglobin 9.9 g/dl (12.0-16.0); Immature Granulocytes # (auto) 0.52 K/uL (0.00-0.02); Immature Granulocytes % (auto) 2.3 %; Lymphocytes % (auto) 10.3 %; Mean Corpuscular Hemoglobin 29.3 pg (25.0-34.0); Mean Corpuscular Hgb Conc 34.6 g/dL (32.0-36.0); Mean Corpuscular Volume 84.6 fL (80.0-100.0); Monocytes # (auto) 1.64 K/uL (0.24-0.82); Monocytes % (auto) 7.3 %; Neutrophils # (auto) 17.95 K/uL (1.4-6.5); Nucleated RBC # (auto) 0.02 K/uL (0-0); Nucleated RBC % (auto) 0.1 %; Platelet Count 210 K/uL (130-400); RDW Coefficient of Variation 14.9 % (11.5-14.5); RDW Standard Deviation 45.8 fL (36.4-46.3); Red Blood Count 3.38 M/uL (3.93-5.22); White Blood Count 22.43 K/ul (4.8-10.8)
[2022-06-05 18:35] LABS: Albumin Globulin Ratio 1.3 (0.9-2); BUN Creatinine Ratio 16.4 (10-20); Bilirubin,Total 0.3 mg/dl (0.2-1.0); Calcium 7.1 mg/dl (8.5-10.1); Creatinine Clr Calc Pharmacy 81.7 ml/min; Est GFR (Non-African American) 52.7 ml/min; Globulin 2.4 gm/dl (2.5-4.0); Potassium 3.9 mmol/L (3.5-5.1); Total Protein 5.4 gm/dl (6.0-8.3)
[2022-06-05] MEDS: DOCUSATE SODIUM 100 MG CAP PO SCH (20:36)
[2022-06-05] MEDS ORDERED: CIPROFLOXACIN / D5W 200 MG/100 ML BAG IV SCH (21:00)
[2022-06-06] MEDS: CLINDAMYCIN/D5W 900 MG/50 ML BAG IV SCH ×3 (01:00→17:41)
[2022-06-06] MEDS: CIPROFLOXACIN / D5W 400 MG/200 ML BAG IV SCH ×2 (02:27→14:32)
[2022-06-06 06:20] LABS: Hematocrit (blood only) 26.7 % (34.1-44.9); Mean Corpuscular Hemoglobin 28.9 pg (25.0-34.0); Mean Corpuscular Hgb Conc 33.7 g/dL (32.0-36.0); Mean Corpuscular Volume 85.9 fL (80.0-100.0); Mean Platelet Volume 11.6 fL (9.4-12.3); Platelet Count 213 K/uL (130-400); RDW Coefficient of Variation 14.9 % (11.5-14.5); RDW Standard Deviation 46.4 fL (36.4-46.3); Red Blood Count 3.11 M/uL (3.93-5.22); White Blood Count 20.79 K/ul (4.8-10.8)
[2022-06-06] MEDS: PRENATAL VITAMIN 1 TAB PO SCH (08:33)
[2022-06-06] MEDS: FERROUS SULFATE 325 MG TAB PO SCH ×2 (08:33→17:41)
[2022-06-06] MEDS: FLUoxetine HCL 20 MG CAP PO SCH (08:33)
[2022-06-06] MEDS: DOCUSATE SODIUM 100 MG CAP PO SCH ×2 (08:33→20:56)
--- NOTE | 2022-06-06 08:51 | Obstetrical Progress Note ---
Date of Service June 06, 2022 Assessment & Plan (1) Acute kidney injury: Continue Gill at this time for strict I's and O's Labs have been improving, morning CMP and LDH pending Awaiting nephrology evaluation, if stable per nephrology we will plan to discharge the patient can be at the NICU (2) Elevated liver enzymes: Have been improving since delivery, morning CMP pending (3) Pre-eclampsia, severe, third trimester: Patient could not complete 24 hours magnesium sulfate after delivery due to acute kidney injury, blood pressure currently 135/84. Was started on p.o. labetalol 100 mg twice daily Currently also on clindamycin and ciprofloxacin for suspected UTI/pyleo Subjective Ambulation: ambulating normally Voiding: gill catheter in place Passing Gas:: Yes Diet Tolerance:: regular diet Lochia:: Small Feeding Type:: breast feeding Current Pain Level(1-10): 1 Doing well, had BM Patient is pumping as baby is currently in NICU at [facility] [place] [facility] at this time. Patient wants to be discharged as soon as possible Physical Exam Constitutional WD/WN, vitals as above Respiratory normal respiratory effort, lungs clear to auscultation Cardiovascular RRR, no murmur, no edema Gastrointestinal (Abdomen) normal bowel sounds, soft, nontender, no hepatosplenomegaly Results & Data ([facility]) Vital Signs (Past 12 Hours) Vital Signs Temp Pulse Resp BP Pulse Ox O2 Del Method 06/06/22 04:30 36.9 C 87 16 135/84 94 Room Air 06/06/22 00:30 36.9 C 79 16 133/77 95 Room Air Laboratory Results Laboratory Results WBC 20.79 K/ul (4.8-10.8) H 06/06/22 06:03 RBC 3.11 M/uL (3.93-5.22) L 06/06/22 06:03 Hgb 9.0 g/dl (12.0-16.0) L 06/06/22 06:03 Hct 26.7 % (34.1-44.9) L 06/06/22 06:03 MCV 85.9 fL (80.0-100.0) 06/06/22 06:03 MCH 28.9 pg (25.0-34.0) 06/06/22 06:03 MCHC 33.7 g/dL (32.0-36.0) 06/06/22 06:03 RDW Std Deviation 46.4 fL (36.4-46.3) H 06/06/22 06:03 RDW Coeff of [place] 14.9 % (11.5-14.5) H 06/06/22 06:03 Plt Count 213 K/uL (130-400) 06/06/22 06:03 MPV 11.6 fL (9.4-12.3) 06/06/22 06:03 Immature Gran % (Auto) 2.3 % 06/05/22 17:41 Neut % (Auto) 80.0 % 06/05/22 17:41 Lymph % (Auto) 10.3 % 06/05/22 17:41 Benson % (Auto) 7.3 % 06/05/22 17:41 Eos % (Auto) 0.0 % 06/05/22 17:41 Baso % (Auto) 0.1 % 06/05/22 17:41 Reticulocyte % (Auto) 2.3 % (0.5-2.0) H 06/05/22 10:06 Neut # (Auto) 17.95 K/uL (1.4-6.5) H 06/05/22 17:41 Lymph # (Auto) 2.30 K/uL (1.2-3.4) 06/05/22 17:41 Benson # (Auto) 1.64 K/uL (0.24-0.82) H 06/05/22 17:41 Eos # (Auto) 0.00 K/uL (0-0.50) 06/05/22 17:41 Baso # (Auto) 0.02 K/uL (0-0.2) 06/05/22 17:41 Reticulocyte # 0.08 10^6/uL (0.02-0.10) 06/05/22 10:06 Immature Gran # (Auto) 0.52 K/uL (0.00-0.02) H 06/05/22 17:41 Absolute Nucleated RBC 0.02 K/uL (0-0) H 06/05/22 17:41 Nucleated RBC % (auto) 0.1 % 06/05/22 17:41 Peripher Smr Path Cons 06/05/22 12:02 PT 10.3 Seconds (9.0-12.0) 06/05/22 10:09 INR 1.0 (0.9-1.1) 06/05/22 10:09 APTT 23.9 Seconds (21.0-31.0) 06/05/22 10:09 PTT Ratio 0.9 06/05/22 10:09 Fibrinogen 332 mg/dl (184-400) D 06/05/22 10:09 Cord ABG pH 7.16 (7.1-7.38) 06/05/22 09:04 Cord ABG pCO2 53 mmHg (39.1-73.5) 06/05/22 09:04 Cord ABG pO2 30 mmHg (4.1-31.7) 06/05/22 09:04 Cord ABG HCO3 19 mmol/L (19.7-28.5) L 06/05/22 09:04 Cord ABG Base Excess -10.0 mEq/L (-9-1.8) L 06/05/22 09:04 Cord ABG O2 Sat < 60.0 % (<60) 06/05/22 09:04 Cord VBG pH 7.26 (7.20-7.44) 06/05/22 09:04 Cord VBG pCO2 39 mmHg (30.4-57.2) 06/05/22 09:04 Cord VBG pO2 36 mmHg (14.1-43.3) 06/05/22 09:04 Cord VBG HCO3 18 mmol/L (18.4-26.8) L 06/05/22 09:04 Cord VBG Base Excess -9.0 mEq/L (-7.7-1.9) L 06/05/22 09:04 Cord VBG O2 Sat 71.8 % (<68) H 06/05/22 09:04 Blood Gas Comments ACKERMAN 06/05/22 09:04 Blood Gas Comments ACKERMAN 06/05/22 09:04 Sodium 128 mmol/L (136-145) L 06/05/22 17:41 Potassium 3.9 mmol/L (3.5-5.1) 06/05/22 17:41 Chloride 96 mmol/L (98-107) L 06/05/22 17:41 Carbon Dioxide 24 mmol/L (21-32) 06/05/22 17:41 Anion Gap 8 (3-11) 06/05/22 17:41 BUN 22 mg/dl (6-23) 06/05/22 17:41 Creatinine 1.34 mg/dl (0.6-1.2) H 06/05/22 17:41 Est Cr Clr Drug Dosing 81.7 ml/min 06/05/22 17:41 Est GFR ( Amer) 61.0 ml/min 06/05/22 17:41 Est GFR (Non-Af Amer) 52.7 ml/min 06/05/22 17:41 BUN/Creatinine Ratio 16.4 (10-20) 06/05/22 17:41 Glucose 147 mg/dl (70-99(Fasting)) H 06/05/22 17:41 Calcium 7.1 mg/dl (8.5-10.1) L 06/05/22 17:41 Magnesium Cancelled 06/05/22 12:02 Magnesium (Sulf Ther) 6.9 mg/dL (4.0-8.0) 06/05/22 12:02 Total Bilirubin 0.3 mg/dl (0.2-1.0) 06/05/22 17:41 Direct Bilirubin 0.1 mg/dl (0-0.2) 06/04/22 17:45 AST 211 U/L (13-39) H 06/05/22 17:41 ALT 345 U/L (7-52) H 06/05/22 17:41 Alkaline Phosphatase 109 U/L (34-104) H 06/05/22 17:41 Ammonia 49.0 umol/L (18-72) 06/05/22 14:49 Lactate Dehydrogenase 377 U/L (86-244) H 06/05/22 17:41 Total Protein 5.4 gm/dl (6.0-8.3) L 06/05/22 17:41 Albumin 3.0 gm/dl (3.4-5.0) L 06/05/22 17:41 Globulin 2.4 gm/dl (2.5-4.0) L 06/05/22 17:41 Albumin/Globulin Ratio 1.3 (0.9-2) 06/05/22 17:41 Urine Color Red 06/05/22 Unknown Urine Appearance Cloudy (Clear) A 06/05/22 Unknown Urine pH 5.0 (4.5-7.5) 06/05/22 Unknown Ur Specific [place] 1.013 (1.000-1.030) 06/05/22 Unknown Urine Protein 2+ (Negative) H 06/05/22 Unknown Urine Glucose (UA) Negative (Negative) 06/05/22 Unknown Urine Ketones Negative (Negative) 06/05/22 Unknown Urine Blood 3+ (Negative) H 06/05/22 Unknown Urine Nitrite Positive (Negative) A 06/05/22 Unknown Urine Bilirubin 1+ (Negative) H 06/05/22 Unknown Urine Urobilinogen Negative (Negative) 06/05/22 Unknown Ur Leukocyte Esterase 1+ (Negative) H 06/05/22 Unknown Urine WBC (Auto) 10-30 /hpf (0-5) H 06/05/22 Unknown Urine RBC (Auto) >30 /hpf (0-4) H 06/05/22 Unknown U Hyaline Cast (Auto) 1-5 /lpf (0-5) 06/05/22 Unknown U Epithel Cells (Auto) 5-10 /lpf (0-5) H 06/05/22 Unknown Urine Bacteria (Auto) Negative (Negative) 06/05/22 Unknown Ur Random Creatinine 57.8 mg/dl 06/05/22 Unknown U Random Total Protein 303.1 mg/dl (0-11.9) H 06/05/22 Unknown Protein/Creatinin Ratio 5.2 (0-0.2) H 06/05/22 Unknown Urine Opiates Screen Neg (Neg) 06/04/22 Unknown Ur Methadone, Qual Neg (Neg) 06/04/22 Unknown Urine Barbiturates Neg (Neg) 06/04/22 Unknown Ur Phencyclidine (PCP) Neg (Neg) 06/04/22 Unknown U Amphetamin/Meth Scrn Neg (Neg) 06/04/22 Unknown MDMA (Ecstasy) Screen Neg (Neg) 06/04/22 Unknown U Benzodiazepines Scrn Neg (Neg) 06/04/22 Unknown Ur Cocaine Metabolite Neg (Neg) 06/04/22 Unknown U Marijuana (THC) Screen Neg (Neg) 06/04/22 Unknown SARS-CoV-2, RNA, NAAT NEGATIVE (NEGATIVE) 06/04/22 15:05 Blood Type A Negative 06/06/22 06:03 Antibody Screen Cancelled 06/06/22 06:03 Screen Negative (Negative) 06/06/22 06:03 Crossmatch See Detail 06/04/22 15:18 Impressions Renal Ultrasound 06/05/22 10:59 US renal/blad retro comp CLINICAL HISTORY: Melvin, concerns for cortical necrosis post delivery TECHNIQUE: Multiple sonographic real-time images of the kidneys and bladder were obtained. COMPARISON: None available at the time of this dictation. FINDINGS: The right kidney measures 12.0 cm in length, and the left kidney measures 12.3 cm in length. The right kidney is normal in size, contour, cortical thickness, and echogenicity. No hydronephrosis is identified. No renal lesion is identified. No perinephric fluid collection is seen. The left kidney is normal in size, contour, cortical thickness and echogenicity. No hydronephrosis is identified. No renal lesion is identified. No perinephric fluid collection is seen. The bladder is partially distended. No large intraluminal mass is seen. IMPRESSION: Unremarkable examination and in particular no evidence of hydronephrosis. No ultrasonic evidence of cortical necrosis. ACT 112: Negative or not required by law. Electronically signed by: Alec Worley M.D. 06/05/2022 2:34 PM
[2022-06-06] MEDS ORDERED: LABETALOL HCL 100 MG TAB PO SCH (09:00)
[2022-06-06 09:28] LABS: Albumin Globulin Ratio 1.2 (0.9-2); Albumin Level 2.9 gm/dl (3.4-5.0); BUN Creatinine Ratio 20.6 (10-20); Bilirubin,Total 0.2 mg/dl (0.2-1.0); Calcium 7.7 mg/dl (8.5-10.1); Creatinine Clr Calc Pharmacy 102.3 ml/min; Est GFR (African American) 80.1 ml/min; Est GFR (Non-African American) 69.1 ml/min; Globulin 2.5 gm/dl (2.5-4.0); Potassium 4.2 mmol/L (3.5-5.1); Total Protein 5.4 gm/dl (6.0-8.3)
--- NOTE | 2022-06-06 09:32 | Progress Note ---
Date of Service June 06, 2022 Assessment & Plan (1) Acute kidney injury: Plan: Will DC Ovalle at this time, repeat protein creatinine ratio and UA in 8 to [address] Handley's help with care this patient (2) Elevated liver enzymes: Plan: Have been improving since delivery, morning CMP pending (3) Pre-eclampsia, severe, third trimester: Plan: Will DC labetalol 100 mg twice daily at this time, as patient has been normotensive Anticipate discharge home tomorrow so patient can go to the NICU to be with baby if she has continued to improve Patient updated at bedside that I [place] [facility] [place] at this time for [place]. She voiced her understanding and agreement with the plan. All questions answered in the room Admission and Anticipated Discharge Date Admission Date: June 04, 2022 Subjective Patient requesting transfer to [place] so she can be closer to baby Results & Data ([facility]) Vital Signs (Past 12 Hours) Vital Signs Temp Pulse Resp BP Pulse Ox O2 Del Method 06/06/22 04:30 36.9 C 87 16 135/84 94 Room Air 06/06/22 00:30 36.9 C 79 16 133/77 95 Room Air
[2022-06-06 10:27] LABS: HBSAG NON-REACTIVE (NON-REACTIVE); Hepatitis A Antibody IgM NON-REACTIVE (NON-REACTIVE); Hepatitis B Core Antibody IgM NON-REACTIVE (NON-REACTIVE)
--- NOTE | 2022-06-06 10:50 | Nephrology Progress Note ---
Date of Service June 06, 2022 Assessment & Plan (1) Acute kidney injury: Plan: Stage 1 nonoliguric YOANA 2/2 ATN versus early onset preeclampsia w/ severe features. She is 5L negative past 24 hrs. -continue q4h BP > she met criteria for severe HTN (2 sbp > 160 over 4h apart) at admission; has required no bp meds to date; SBP past 24 hrs are controlled w/o meds and improving compared to admission >>continue to avoid all nsaids and further gentamicin -encourage po fluids -no indication for IV fluids at this time -continue abtx/ follow up pending cxs which are all NGTD; PCN allergy noted REASONABLE at this point to -d/c gill -continue to check BP at least q4h -continue strict I/O -will recheck uacm, prot/creat this evening >given labs this am including drop in hgb (per test rider not unexpected), will recheck bmp, cbc/d, mag this pm -no evidence of cortical necrosis on imaging -AFLP is also on the DD but her Bilirubin is wnl as are BG and ammonia. liver t rends improving. hep screen negative. - Unlikley MAHA/HUS/TTP as her co-agulation profile, platelet, fibrinogen is wnl and she is alert and oriented. no hemolysis on labs on peripheral smear. >SLE / APS serologies pending and will take days to post completely; low index of suspicion at this time but will follow up >pt will need to f/u w/ nephrology at d/c; watching for now to see if she will need remote home bp monitoring at d/c Care coordinated w/ Dr Salgado. (2) Elevated liver enzymes: (3) Pre-eclampsia, severe, third trimester: (4) 33 weeks gestation of : Admission and Anticipated Discharge Date Admission Date: June 04, 2022 Subjective no interval events. no confusion, no F, no rash, no abd pain, no further gross hematuria; no dyspnea; edema markedly improved. on cipro and clinda. standing labetalol had been considered but none given. pt seen on rounds 0900. Review of Systems Review of Systems: All systems reviewed & are unremarkable except as noted in Subjective Physical Exam Constitutional: well developed, well nourished and cooperative; no acute distress Eyes: EOM intact bilaterally; no scleral abnormality Neck: normal visual inspection Respiratory: normal respiratory effort, lungs clear to auscultation Cardiovascular: Rate/Rhythm: regular rate and regular rhythm Heart Sounds: + murmur Extremities: + edema (1+ pedal BL) Gastrointestinal (Abdomen): Inspection/Auscultation: abdomen normal to inspection Percussion/Palpation: abdomen soft; abdomen nontender and no guarding Musculoskeletal: no cyanosis or clubbing, extremities motor strength 5/5 Skin: no rashes, warm and dry Neurologic: singh, fluent speech, no tremor Psychiatric: Orientation: oriented x 3 Affect: + tearful affect (at times talking about her son) Genitourinary: gill w/ ample clear light urine Results & Data ([facility]) Vital Signs (Past 12 Hours) Vital Signs Temp Pulse Pulse Resp BP BP Pulse Ox 06/06/22 10:00 36.8 C 64 18 113/74 95 06/06/22 04:30 36.9 C 87 16 135/84 94 06/06/22 00:30 36.9 C 79 16 133/77 95 O2 Del Method O2 Flow Rate 06/06/22 10:00 0 06/06/22 04:30 Room Air 06/06/22 00:30 Room Air Laboratory Results 06/06/22 06:03 06/06/22 08:28
[2022-06-06] MEDS ORDERED: Nursing to Pharmacy Communication SCH (12:00)
[2022-06-06 16:03] LABS: Basophils # (auto) 0.03 K/uL (0-0.2); Basophils % (auto) 0.2 %; Eosinophils # (auto) 0.01 K/uL (0-0.50); Eosinophils % (auto) 0.1 %; Hematocrit (blood only) 26.7 % (34.1-44.9); Hemoglobin 8.8 g/dl (12.0-16.0); Immature Granulocytes # (auto) 0.51 K/uL (0.00-0.02); Immature Granulocytes % (auto) 2.7 %; Lymphocytes # (auto) 4.03 K/uL (1.2-3.4); Lymphocytes % (auto) 21.1 %; Mean Corpuscular Hemoglobin 28.8 pg (25.0-34.0); Mean Corpuscular Volume 87.3 fL (80.0-100.0); Mean Platelet Volume 11.1 fL (9.4-12.3); Monocytes # (auto) 1.53 K/uL (0.24-0.82); Neutrophils # (auto) 12.98 K/uL (1.4-6.5); Neutrophils % (auto) 67.9 %; Nucleated RBC # (auto) 0.02 K/uL (0-0); Nucleated RBC % (auto) 0.1 %; Platelet Count 233 K/uL (130-400); RDW Coefficient of Variation 15.2 % (11.5-14.5); RDW Standard Deviation 48.7 fL (36.4-46.3); Red Blood Count 3.06 M/uL (3.93-5.22); White Blood Count 19.09 K/ul (4.8-10.8)
[2022-06-06 16:14] LABS: INR 0.9 (0.9-1.1); Prothrombin Time 9.9 Seconds (9.0-12.0)
[2022-06-06 16:35] LABS: BUN Creatinine Ratio 22.5 (10-20); Calcium 7.8 mg/dl (8.5-10.1); Est GFR (African American) 100.1 ml/min; Est GFR (Non-African American) 86.4 ml/min; Magnesium 2.5 mg/dl (1.7-2.4); Potassium 4.5 mmol/L (3.5-5.1)
[2022-06-06] MEDS ORDERED: bisacodyL 5 MG TABEC PO SCH (20:00)
[2022-06-06 22:35] LABS: Appearance Urine Clear (Clear); Bacteria Urine Automated Negative (Negative); Bilirubin Urine Negative (Negative); Blood Urine 3+ (Negative); Color Urine Orange; Epithelial Cell Urine Auto >30 /lpf (0-5); Glucose Urine UA Negative (Negative); Ketones Urine Negative (Negative); Leukocyte Esterase Urine 1+ (Negative); Nitrite Urine Negative (Negative); Protein Urine Negative (Negative); RBC Urine Automated >30 /hpf (0-4); Specific Gravity Urine 1.011 (1.000-1.030); Urobilinogen Urine Negative (Negative); pH Urine 6.5 (4.5-7.5)
[2022-06-06 23:03] LABS: Total Protein Urine Random 22.3 mg/dl (0-11.9)
[2022-06-06 23:08] LABS: Creatinine Urine Random 46.4 mg/dl; Protein Creatinine Ratio Urine 0.5 (0-0.2)
[2022-06-07 06:11] LABS: Hematocrit (blood only) 27.4 % (34.1-44.9); Mean Corpuscular Hemoglobin 28.8 pg (25.0-34.0); Mean Corpuscular Hgb Conc 32.8 g/dL (32.0-36.0); Mean Corpuscular Volume 87.5 fL (80.0-100.0); Nucleated RBC # (auto) 0.05 K/uL (0-0); Nucleated RBC % (auto) 0.3 %; Platelet Count 231 K/uL (130-400); RDW Coefficient of Variation 15.4 % (11.5-14.5); RDW Standard Deviation 49.1 fL (36.4-46.3); Red Blood Count 3.13 M/uL (3.93-5.22); White Blood Count 17.07 K/ul (4.8-10.8)
[2022-06-07 06:34] LABS: Albumin Level 2.8 gm/dl (3.4-5.0); Bilirubin,Total 0.2 mg/dl (0.2-1.0); Potassium 4.5 mmol/L (3.5-5.1)
[2022-06-07 06:40] LABS: Albumin Globulin Ratio 1.1 (0.9-2); BUN Creatinine Ratio 21.9 (10-20); Basophils # (auto) 0.08 K/uL (0-0.2); Basophils % (auto) 0.5 %; Creatinine Clr Calc Pharmacy 149.9 ml/min; Eosinophils # (auto) 0.13 K/uL (0-0.50); Eosinophils % (auto) 0.8 %; Est GFR (African American) 127.2 ml/min; Est GFR (Non-African American) 109.7 ml/min; Globulin 2.5 gm/dl (2.5-4.0); Immature Granulocytes # (auto) 0.49 K/uL (0.00-0.02); Immature Granulocytes % (auto) 2.9 %; Lymphocytes # (auto) 5.26 K/uL (1.2-3.4); Lymphocytes % (auto) 30.8 %; Monocytes # (auto) 1.33 K/uL (0.24-0.82); Monocytes % (auto) 7.8 %; Neutrophils # (auto) 9.78 K/uL (1.4-6.5); Neutrophils % (auto) 57.2 %; Polychromasia 1+; Total Protein 5.3 gm/dl (6.0-8.3)
[2022-06-07] MEDS: FLUoxetine HCL 20 MG CAP PO SCH (08:25)
[2022-06-07] MEDS: DOCUSATE SODIUM 100 MG CAP PO SCH (08:25)
[2022-06-07] MEDS: PRENATAL VITAMIN 1 TAB PO SCH (08:25)
[2022-06-07] MEDS: FERROUS SULFATE 325 MG TAB PO SCH (08:25)
--- NOTE | 2022-06-07 08:57 | Nephrology Progress Note ---
Date of Service June 07, 2022 Assessment & Plan (1) Acute kidney injury: Plan: Stage 1 nonoliguric YOANA 2/2 ATN in the setting of /versus early onset preeclampsia w/ severe features. She is 4.4L negative on the admission > she met criteria for severe HTN (2 sbp > 160 over 4h apart) at admission; has required no bp meds to date; SBP past 48 hrs are controlled w/o meds and improving compared to admission >>continue to avoid all nsaids and further gentamicin now and at d/c -encourage po fluids -continue abtx/ follow up pending cxs which are all NGTD; PCN allergy noted -no evidence of cortical necrosis on imaging -AFLP is also on the DD but her Bilirubin is wnl as are BG and ammonia. liver trends improving. hep screen negative. - Unlikley MAHA/HUS/TTP as her co-agulation profile, platelet, fibrinogen is wnl and she is alert and oriented. no hemolysis on labs on peripheral smear. >SLE / APS serologies pending and will take days to post completely; low index of suspicion at this time but will follow up d/w primary service; reasonable for d/c NEPHRO D/C recommendations -f/u w/ OB in one week w/ BP check ; pls also have her check labs >> check cmp, cbc, uacm, prot/creat -f/u w/ me in 2 wks for same labs/BP check/ review of pending labs from [facility] -no indication at this time for remote home bp monitoring (2) Elevated liver enzymes: Plan: improving (3) Pre-eclampsia, severe, third trimester: Plan: improving Admission and Anticipated Discharge Date Admission Date: June 04, 2022 Subjective continues to feel well. pumping breast milk. no interval events. specifically no confusion, no F, no rash, no abd pain, no further gross hematuria; no dyspnea; edema plateau'd. on cipro and clinda. has needed no prn labetalol Review of Systems Review of Systems: All systems reviewed & are unremarkable except as noted in Subjective Physical Exam Constitutional: well developed, well nourished and cooperative; no acute distress Eyes: EOM intact bilaterally; no scleral abnormality Neck: normal visual inspection Respiratory: normal respiratory effort, lungs clear to auscultation Cardiovascular: Rate/Rhythm: regular rate and regular rhythm Heart Sounds: + murmur Extremities: + calf tenderness and + edema (elizabeth pedal BL) Gastrointestinal (Abdomen): Inspection/Auscultation: abdomen normal to inspection Percussion/Palpation: abdomen soft; abdomen nontender and no guarding Musculoskeletal: no cyanosis or clubbing, extremities motor strength 5/5 Skin: no rashes, warm and dry Neurologic: non focal Psychiatric: Orientation: oriented x 3 Affect: euthymic affect Results & Data ([facility]) Vital Signs (Past 12 Hours) Vital Signs Temp Pulse Resp BP Pulse Ox O2 Del Method 06/07/22 07:45 36.4 C L 103 H 16 131/84 Room Air 06/07/22 02:58 36.8 C 73 18 110/70 94 Room Air 06/06/22 23:05 36.9 C 65 20 115/72 95 Room Air 06/06/22 21:00 36.8 C 71 18 120/75 95 Room Air Laboratory Results 06/07/22 05:56 06/07/22 05:56 urine, liver labs reviewed
--- NOTE | 2022-06-07 09:40 | Obstetrical Progress Note ---
Date of Service June 07, 2022 Subjective Ambulation: ambulating normally Voiding: no voiding problems Passing Gas:: Yes Diet Tolerance:: regular diet Lochia:: Small Feeding Type:: breast feeding Current Pain Level(1-10): 0 doing well cleared by renal for d/c Physical Exam Constitutional WD/WN, vitals as above Gastrointestinal (Abdomen) Inspection/Auscultation: abdomen normal to inspection abdomen soft and non-tender. fundus firm below U Musculoskeletal Extremities: extremities normal to inspection Skin no rashes, warm and dry Neurologic patellar DTR's 2+ bilat, sensation intact Psychiatric A+Ox3, euthymic affect Results & Data ([facility]) Vital Signs (Past 12 Hours) Vital Signs Temp Pulse Resp BP Pulse Ox O2 Del Method 06/07/22 07:45 36.4 C L 103 H 16 131/84 Room Air 06/07/22 02:58 36.8 C 73 18 110/70 94 Room Air 06/06/22 23:05 36.9 C 65 20 115/72 95 Room Air Laboratory Results 06/04/22 06/04/22 06/04/22 15:05 15:18 15:18 WBC 11.96 H RBC 4.41 Hgb 12.8 Hct 37.3 MCV 84.6 MCH 29.0 MCHC 34.3 RDW Std Deviation 45.2 RDW Coeff of [place] 14.7 H Plt Count 243 MPV 12.0 Immature Gran % (Auto) Neut % (Auto) Lymph % (Auto) Payne % (Auto) Eos % (Auto) Baso % (Auto) Reticulocyte % (Auto) Neut # (Auto) Lymph # (Auto) Payne # (Auto) Eos # (Auto) Baso # (Auto) Reticulocyte # Immature Gran # (Auto) Absolute Nucleated RBC Nucleated RBC % (auto) Polychromasia Peripher Smr Path Cons PT INR APTT PTT Ratio Fibrinogen Cord ABG pH Cord ABG pCO2 Cord ABG pO2 Cord ABG HCO3 Cord ABG Base Excess Cord ABG O2 Sat Cord VBG pH Cord VBG pCO2 Cord VBG pO2 Cord VBG HCO3 Cord VBG Base Excess Cord VBG O2 Sat Blood Gas Comments Sodium Potassium Chloride Carbon Dioxide Anion Gap BUN Creatinine Est Cr Clr Drug Dosing Est GFR ( Amer) Est GFR (Non-Af Amer) BUN/Creatinine Ratio Glucose Calcium Magnesium Magnesium (Sulf Ther) Total Bilirubin Direct Bilirubin AST ALT Alkaline Phosphatase Ammonia Lactate Dehydrogenase Total Protein Albumin Globulin Albumin/Globulin Ratio Urine Color Urine Appearance Urine pH Ur Specific [place] Urine Protein Urine Glucose (UA) Urine Ketones Urine Blood Urine Nitrite Urine Bilirubin Urine Urobilinogen Ur Leukocyte Esterase Urine WBC (Auto) Urine RBC (Auto) U Hyaline Cast (Auto) U Epithel Cells (Auto) Urine Bacteria (Auto) Ur Random Creatinine U Random Total Protein Protein/Creatinin Ratio Urine Opiates Screen Ur Methadone, Qual Urine Barbiturates Ur Phencyclidine (PCP) U Amphetamin/Meth Scrn MDMA (Ecstasy) Screen U Benzodiazepines Scrn Ur Cocaine Metabolite U Marijuana (THC) Screen Hepatitis A IgM Ab Hep Bs Antigen Hep Bs Ag Confirmation Hep B Core IgM Ab Hepatitis C Ab (EIA) Hep C Ab Signal/Cutoff SARS-CoV-2, RNA, NAAT NEGATIVE Blood Type A Negative Antibody Screen NEGATIVE Screen Crossmatch See Detail 06/04/22 06/04/22 06/04/22 15:18 17:45 Unknown WBC RBC Hgb Hct MCV MCH MCHC RDW Std Deviation RDW Coeff of [place] Plt Count MPV Immature Gran % (Auto) Neut % (Auto) Lymph % (Auto) Payne % (Auto) Eos % (Auto) Baso % (Auto) Reticulocyte % (Auto) Neut # (Auto) Lymph # (Auto) Payne # (Auto) Eos # (Auto) Baso # (Auto) Reticulocyte # Immature Gran # (Auto) Absolute Nucleated RBC Nucleated RBC % (auto) Polychromasia Peripher Smr Path Cons PT INR APTT PTT Ratio Fibrinogen Cord ABG pH Cord ABG pCO2 Cord ABG pO2 Cord ABG HCO3 Cord ABG Base Excess Cord ABG O2 Sat Cord VBG pH Cord VBG pCO2 Cord VBG pO2 Cord VBG HCO3 Cord VBG Base Excess Cord VBG O2 Sat Blood Gas Comments Sodium 136 Potassium 4.4 Chloride 106 Carbon Dioxide 19 L Anion Gap 11 BUN 17 Creatinine 0.90 Est Cr Clr Drug Dosing 121.6 Est GFR ( Amer) 98.7 Est GFR (Non-Af Amer) 85.2 BUN/Creatinine Ratio 18.9 Glucose 73 Calcium 9.2 Magnesium Magnesium (Sulf Ther) Total Bilirubin 0.3 0.3 Direct Bilirubin 0.1 AST 349 H 321 H ALT 450 H 434 H Alkaline Phosphatase 139 H 140 H Ammonia Lactate Dehydrogenase Total Protein 6.6 6.5 Albumin 3.4 3.4 Globulin 3.2 Albumin/Globulin Ratio 1.1 Urine Color Urine Appearance Urine pH Ur Specific [place] Urine Protein Urine Glucose (UA) Urine Ketones Urine Blood Urine Nitrite Urine Bilirubin Urine Urobilinogen Ur Leukocyte Esterase Urine WBC (Auto) Urine RBC (Auto) U Hyaline Cast (Auto) U Epithel Cells (Auto) Urine Bacteria (Auto) Ur Random Creatinine 88.0 U Random Total Protein 64.0 H Protein/Creatinin Ratio 0.7 H Urine Opiates Screen Ur Methadone, Qual Urine Barbiturates Ur Phencyclidine (PCP) U Amphetamin/Meth Scrn MDMA (Ecstasy) Screen U Benzodiazepines Scrn Ur Cocaine Metabolite U Marijuana (THC) Screen Hepatitis A IgM Ab Hep Bs Antigen Hep Bs Ag Confirmation Hep B Core IgM Ab Hepatitis C Ab (EIA) Hep C Ab Signal/Cutoff SARS-CoV-2, RNA, NAAT Blood Type Antibody Screen Screen Crossmatch 06/04/22 06/05/22 06/05/22 Unknown 00:40 00:40 WBC RBC Hgb Hct MCV MCH MCHC RDW Std Deviation RDW Coeff of [place] Plt Count MPV Immature Gran % (Auto) Neut % (Auto) Lymph % (Auto) Payne % (Auto) Eos % (Auto) Baso % (Auto) Reticulocyte % (Auto) Neut # (Auto) Lymph # (Auto) Payne # (Auto) Eos # (Auto) Baso # (Auto) Reticulocyte # Immature Gran # (Auto) Absolute Nucleated RBC Nucleated RBC % (auto) Polychromasia Peripher Smr Path Cons PT 10.1 INR 0.9 APTT PTT Ratio Fibrinogen 448 H Cord ABG pH Cord ABG pCO2 Cord ABG pO2 Cord ABG HCO3 Cord ABG Base Excess Cord ABG O2 Sat Cord VBG pH Cord VBG pCO2 Cord VBG pO2 Cord VBG HCO3 Cord VBG Base Excess Cord VBG O2 Sat Blood Gas Comments Sodium 131 L Potassium 4.5 Chloride 100 Carbon Dioxide 18 L Anion Gap 13 H BUN 19 Creatinine 1.09 Est Cr Clr Drug Dosing 100.4 Est GFR ( Amer) 78.3 Est GFR (Non-Af Amer) 67.6 BUN/Creatinine Ratio 17.4 Glucose 95 Calcium 9.2 Magnesium 6.3 H* Magnesium (Sulf Ther) Total Bilirubin 0.3 Direct Bilirubin AST 461 H ALT 569 H Alkaline Phosphatase 149 H Ammonia Lactate Dehydrogenase Total Protein 6.7 Albumin 3.4 Globulin 3.3 Albumin/Globulin Ratio 1.0 Urine Color Urine Appearance Urine pH Ur Specific [place] Urine Protein Urine Glucose (UA) Urine Ketones Urine Blood Urine Nitrite Urine Bilirubin Urine Urobilinogen Ur Leukocyte Esterase Urine WBC (Auto) Urine RBC (Auto) U Hyaline Cast (Auto) U Epithel Cells (Auto) Urine Bacteria (Auto) Ur Random Creatinine U Random Total Protein Protein/Creatinin Ratio Urine Opiates Screen Neg Ur Methadone, Qual Neg Urine Barbiturates Neg Ur Phencyclidine (PCP) Neg U Amphetamin/Meth Scrn Neg MDMA (Ecstasy) Screen Neg U Benzodiazepines Scrn Neg Ur Cocaine Metabolite Neg U Marijuana (THC) Screen Neg Hepatitis A IgM Ab Hep Bs Antigen Hep Bs Ag Confirmation Hep B Core IgM Ab Hepatitis C Ab (EIA) Hep C Ab Signal/Cutoff SARS-CoV-2, RNA, NAAT Blood Type Antibody Screen Screen Crossmatch 06/05/22 06/05/22 06/05/22 00:40 00:40 00:40 WBC 17.93 H RBC 4.36 Hgb 12.9 Hct 37.9 MCV 86.9 MCH 29.6 MCHC 34.0 RDW Std Deviation 47.6 H RDW Coeff of [place] 14.9 H Plt Count 246 MPV 11.6 Immature Gran % (Auto) Neut % (Auto) Lymph % (Auto) Payne % (Auto) Eos % (Auto) Baso % (Auto) Reticulocyte % (Auto) Neut # (Auto) Lymph # (Auto) Payne # (Auto) Eos # (Auto) Baso # (Auto) Reticulocyte # Immature Gran # (Auto) Absolute Nucleated RBC 0.02 H Nucleated RBC % (auto) 0.1 Polychromasia Peripher Smr Path Cons PT Cancelled INR Cancelled APTT PTT Ratio Fibrinogen Cord ABG pH Cord ABG pCO2 Cord ABG pO2 Cord ABG HCO3 Cord ABG Base Excess Cord ABG O2 Sat Cord VBG pH Cord VBG pCO2 Cord VBG pO2 Cord VBG HCO3 Cord VBG Base Excess Cord VBG O2 Sat Blood Gas Comments Sodium Potassium Chloride Carbon Dioxide Anion Gap BUN Creatinine Est Cr Clr Drug Dosing Est GFR ( Amer) Est GFR (Non-Af Amer) BUN/Creatinine Ratio Glucose Calcium Magnesium Magnesium (Sulf Ther) Total Bilirubin Direct Bilirubin AST ALT Alkaline Phosphatase Ammonia Lactate Dehydrogenase Total Protein Albumin Globulin Albumin/Globulin Ratio Urine Color Urine Appearance Urine pH Ur Specific [place] Urine Protein Urine Glucose (UA) Urine Ketones Urine Blood Urine Nitrite Urine Bilirubin Urine Urobilinogen Ur Leukocyte Esterase Urine WBC (Auto) Urine RBC (Auto) U Hyaline Cast (Auto) U Epithel Cells (Auto) Urine Bacteria (Auto) Ur Random Creatinine U Random Total Protein Protein/Creatinin Ratio Urine Opiates Screen Ur Methadone, Qual Urine Barbiturates Ur Phencyclidine (PCP) U Amphetamin/Meth Scrn MDMA (Ecstasy) Screen U Benzodiazepines Scrn Ur Cocaine Metabolite U Marijuana (THC) Screen Hepatitis A IgM Ab NON-REACTIVE Hep Bs Antigen NON-REACTIVE Hep Bs Ag Confirmation TNP Hep B Core IgM Ab NON-REACTIVE Hepatitis C Ab (EIA) NON-REACTIVE Hep C Ab Signal/Cutoff <0.02 SARS-CoV-2, RNA, NAAT Blood Type Antibody Screen Screen Crossmatch 06/05/22 06/05/22 06/05/22 05:53 05:53 09:04 WBC 20.95 H RBC 4.11 Hgb 11.9 L Hct 36.1 MCV 87.8 MCH 29.0 MCHC 33.0 RDW Std Deviation 49.0 H RDW Coeff of [place] 15.0 H Plt Count 244 MPV 11.4 Immature Gran % (Auto) Neut % (Auto) Lymph % (Auto) Payne % (Auto) Eos % (Auto) Baso % (Auto) Reticulocyte % (Auto) Neut # (Auto) Lymph # (Auto) Payne # (Auto) Eos # (Auto) Baso # (Auto) Reticulocyte # Immature Gran # (Auto) Absolute Nucleated RBC 0.02 H Nucleated RBC % (auto) 0.1 Polychromasia Peripher Smr Path Cons PT INR APTT PTT Ratio Fibrinogen Cord ABG pH 7.16 Cord ABG pCO2 53 Cord ABG pO2 30 Cord ABG HCO3 19 L Cord ABG Base Excess -10.0 L Cord ABG O2 Sat < 60.0 Cord VBG pH Cord VBG pCO2 Cord VBG pO2 Cord VBG HCO3 Cord VBG Base Excess Cord VBG O2 Sat Blood Gas Comments ACKERMAN Sodium 130 L Potassium 4.2 Chloride 97 L Carbon Dioxide 18 L Anion Gap 15 H BUN 21 Creatinine 1.28 H Est Cr Clr Drug Dosing 85.5 Est GFR ( Amer) 64.5 Est GFR (Non-Af Amer) 55.7 BUN/Creatinine Ratio 16.4 Glucose 110 H Calcium 8.7 Magnesium 7.9 H* Magnesium (Sulf Ther) Total Bilirubin 0.4 Direct Bilirubin AST 421 H ALT 511 H Alkaline Phosphatase 142 H Ammonia Lactate Dehydrogenase Total Protein 6.4 Albumin 3.5 Globulin 2.9 Albumin/Globulin Ratio 1.2 Urine Color Urine Appearance Urine pH Ur Specific [place] Urine Protein Urine Glucose (UA) Urine Ketones Urine Blood Urine Nitrite Urine Bilirubin Urine Urobilinogen Ur Leukocyte Esterase Urine WBC (Auto) Urine RBC (Auto) U Hyaline Cast (Auto) U Epithel Cells (Auto) Urine Bacteria (Auto) Ur Random Creatinine U Random Total Protein Protein/Creatinin Ratio Urine Opiates Screen Ur Methadone, Qual Urine Barbiturates Ur Phencyclidine (PCP) U Amphetamin/Meth Scrn MDMA (Ecstasy) Screen U Benzodiazepines Scrn Ur Cocaine Metabolite U Marijuana (THC) Screen Hepatitis A IgM Ab Hep Bs Antigen Hep Bs Ag Confirmation Hep B Core IgM Ab Hepatitis C Ab (EIA) Hep C Ab Signal/Cutoff SARS-CoV-2, RNA, NAAT Blood Type Antibody Screen Screen Crossmatch 06/05/22 06/05/22 06/05/22 09:04 10:06 10:06 WBC 21.78 H RBC 3.71 L Hgb 11.0 L Hct 32.1 L MCV 86.5 MCH 29.6 MCHC 34.3 RDW Std Deviation 47.3 H RDW Coeff of [place] 14.9 H Plt Count 219 MPV 11.7 Immature Gran % (Auto) 2.1 Neut % (Auto) 80.1 Lymph % (Auto) 11.4 Payne % (Auto) 6.2 Eos % (Auto) 0.0 Baso % (Auto) 0.2 Reticulocyte % (Auto) Neut # (Auto) 17.44 H Lymph # (Auto) 2.48 Payne # (Auto) 1.36 H Eos # (Auto) 0.00 Baso # (Auto) 0.04 Reticulocyte # Immature Gran # (Auto) 0.46 H Absolute Nucleated RBC Nucleated RBC % (auto) Polychromasia Peripher Smr Path Cons PT INR APTT PTT Ratio Fibrinogen Cord ABG pH Cord ABG pCO2 Cord ABG pO2 Cord ABG HCO3 Cord ABG Base Excess Cord ABG O2 Sat Cord VBG pH 7.26 Cord VBG pCO2 39 Cord VBG pO2 36 Cord VBG HCO3 18 L Cord VBG Base Excess -9.0 L Cord VBG O2 Sat 71.8 H Blood Gas Comments ACKERMAN Sodium 126 L Potassium 4.3 Chloride 96 L Carbon Dioxide 18 L Anion Gap 12 H BUN 21 Creatinine 1.33 H Est Cr Clr Drug Dosing 82.3 Est GFR ( Amer) 61.6 Est GFR (Non-Af Amer) 53.1 BUN/Creatinine Ratio 15.8 Glucose 133 H Calcium 7.8 L Magnesium Magnesium (Sulf Ther) Total Bilirubin 0.4 Direct Bilirubin AST 306 H ALT 417 H Alkaline Phosphatase 129 H Ammonia Lactate Dehydrogenase Total Protein 5.6 L Albumin 3.0 L Globulin 2.6 Albumin/Globulin Ratio 1.2 Urine Color Urine Appearance Urine pH Ur Specific [place] Urine Protein Urine Glucose (UA) Urine Ketones Urine Blood Urine Nitrite Urine Bilirubin Urine Urobilinogen Ur Leukocyte Esterase Urine WBC (Auto) Urine RBC (Auto) U Hyaline Cast (Auto) U Epithel Cells (Auto) Urine Bacteria (Auto) Ur Random Creatinine U Random Total Protein Protein/Creatinin Ratio Urine Opiates Screen Ur Methadone, Qual Urine Barbiturates Ur Phencyclidine (PCP) U Amphetamin/Meth Scrn MDMA (Ecstasy) Screen U Benzodiazepines Scrn Ur Cocaine Metabolite U Marijuana (THC) Screen Hepatitis A IgM Ab Hep Bs Antigen Hep Bs Ag Confirmation Hep B Core IgM Ab Hepatitis C Ab (EIA) Hep C Ab Signal/Cutoff SARS-CoV-2, RNA, NAAT Blood Type Antibody Screen Screen Crossmatch 06/05/22 06/05/22 06/05/22 10:06 10:06 10:09 WBC RBC Hgb Hct MCV MCH MCHC RDW Std Deviation RDW Coeff of [place] Plt Count MPV Immature Gran % (Auto) Neut % (Auto) Lymph % (Auto) Payne % (Auto) Eos % (Auto) Baso % (Auto) Reticulocyte % (Auto) 2.3 H Neut # (Auto) Lymph # (Auto) Payne # (Auto) Eos # (Auto) Baso # (Auto) Reticulocyte # 0.08 Immature Gran # (Auto) Absolute Nucleated RBC Nucleated RBC % (auto) Polychromasia Peripher Smr Path Cons PT 10.3 INR 1.0 APTT 23.9 PTT Ratio 0.9 Fibrinogen 332 D Cord ABG pH Cord ABG pCO2 Cord ABG pO2 Cord ABG HCO3 Cord ABG Base Excess Cord ABG O2 Sat Cord VBG pH Cord VBG pCO2 Cord VBG pO2 Cord VBG HCO3 Cord VBG Base Excess Cord VBG O2 Sat Blood Gas Comments Sodium Potassium Chloride Carbon Dioxide Anion Gap BUN Creatinine Est Cr Clr Drug Dosing Est GFR ( Amer) Est GFR (Non-Af Amer) BUN/Creatinine Ratio Glucose Calcium Magnesium Magnesium (Sulf Ther) Total Bilirubin Direct Bilirubin AST ALT Alkaline Phosphatase Ammonia Lactate Dehydrogenase 474 H Total Protein Albumin Globulin Albumin/Globulin Ratio Urine Color Urine Appearance Urine pH Ur Specific [place] Urine Protein Urine Glucose (UA) Urine Ketones Urine Blood Urine Nitrite Urine Bilirubin Urine Urobilinogen Ur Leukocyte Esterase Urine WBC (Auto) Urine RBC (Auto) U Hyaline Cast (Auto) U Epithel Cells (Auto) Urine Bacteria (Auto) Ur Random Creatinine U Random Total Protein Protein/Creatinin Ratio Urine Opiates Screen Ur Methadone, Qual Urine Barbiturates Ur Phencyclidine (PCP) U Amphetamin/Meth Scrn MDMA (Ecstasy) Screen U Benzodiazepines Scrn Ur Cocaine Metabolite U Marijuana (THC) Screen Hepatitis A IgM Ab Hep Bs Antigen Hep Bs Ag Confirmation Hep B Core IgM Ab Hepatitis C Ab (EIA) Hep C Ab Signal/Cutoff SARS-CoV-2, RNA, NAAT Blood Type Antibody Screen Screen Crossmatch 06/05/22 06/05/22 06/05/22 12:02 12:02 12:20 WBC RBC Hgb Hct MCV MCH MCHC RDW Std Deviation RDW Coeff of [place] Plt Count MPV Immature Gran % (Auto) Neut % (Auto) Lymph % (Auto) Payne % (Auto) Eos % (Auto) Baso % (Auto) Reticulocyte % (Auto) Neut # (Auto) Lymph # (Auto) Payne # (Auto) Eos # (Auto) Baso # (Auto) Reticulocyte # Immature Gran # (Auto) Absolute Nucleated RBC Nucleated RBC % (auto) Polychromasia Peripher Smr Path Cons PT INR APTT PTT Ratio Fibrinogen Cord ABG pH Cord ABG pCO2 Cord ABG pO2 Cord ABG HCO3 Cord ABG Base Excess Cord ABG O2 Sat Cord VBG pH Cord VBG pCO2 Cord VBG pO2 Cord VBG HCO3 Cord VBG Base Excess Cord VBG O2 Sat Blood Gas Comments Sodium 126 L Potassium 4.1 Chloride 96 L Carbon Dioxide 20 L Anion Gap 10 BUN 21 Creatinine 1.28 H Est Cr Clr Drug Dosing 85.5 Est GFR ( Amer) 64.5 Est GFR (Non-Af Amer) 55.7 BUN/Creatinine Ratio 16.4 Glucose 145 H Calcium 7.8 L Magnesium Cancelled Magnesium (Sulf Ther) 6.9 Total Bilirubin 0.4 Direct Bilirubin AST 288 H ALT 409 H Alkaline Phosphatase 127 H Ammonia Lactate Dehydrogenase Total Protein 5.8 L Albumin 3.1 L Globulin 2.7 Albumin/Globulin Ratio 1.1 Urine Color Urine Appearance Urine pH Ur Specific [place] Urine Protein Urine Glucose (UA) Urine Ketones Urine Blood Urine Nitrite Urine Bilirubin Urine Urobilinogen Ur Leukocyte Esterase Urine WBC (Auto) 1-5 Urine RBC (Auto) >30 H U Hyaline Cast (Auto) 1-5 U Epithel Cells (Auto) 5-10 H Urine Bacteria (Auto) Negative Ur Random Creatinine U Random Total Protein Protein/Creatinin Ratio Urine Opiates Screen Ur Methadone, Qual Urine Barbiturates Ur Phencyclidine (PCP) U Amphetamin/Meth Scrn MDMA (Ecstasy) Screen U Benzodiazepines Scrn Ur Cocaine Metabolite U Marijuana (THC) Screen Hepatitis A IgM Ab Hep Bs Antigen Hep Bs Ag Confirmation Hep B Core IgM Ab Hepatitis C Ab (EIA) Hep C Ab Signal/Cutoff SARS-CoV-2, RNA, NAAT Blood Type Antibody Screen Screen Crossmatch 06/05/22 06/05/22 06/05/22 12:20 14:49 17:41 WBC RBC Hgb Hct MCV MCH MCHC RDW Std Deviation RDW Coeff of [place] Plt Count MPV Immature Gran % (Auto) Neut % (Auto) Lymph % (Auto) Payne % (Auto) Eos % (Auto) Baso % (Auto) Reticulocyte % (Auto) Neut # (Auto) Lymph # (Auto) Payne # (Auto) Eos # (Auto) Baso # (Auto) Reticulocyte # Immature Gran # (Auto) Absolute Nucleated RBC Nucleated RBC % (auto) Polychromasia Peripher Smr Path Cons PT INR APTT PTT Ratio Fibrinogen Cord ABG pH Cord ABG pCO2 Cord ABG pO2 Cord ABG HCO3 Cord ABG Base Excess Cord ABG O2 Sat Cord VBG pH Cord VBG pCO2 Cord VBG pO2 Cord VBG HCO3 Cord VBG Base Excess Cord VBG O2 Sat Blood Gas Comments Sodium 128 L Potassium 3.9 Chloride 96 L Carbon Dioxide 24 Anion Gap 8 BUN 22 Creatinine 1.34 H Est Cr Clr Drug Dosing 81.7 Est GFR ( Amer) 61.0 Est GFR (Non-Af Amer) 52.7 BUN/Creatinine Ratio 16.4 Glucose 147 H Calcium 7.1 L Magnesium Magnesium (Sulf Ther) Total Bilirubin 0.3 Direct Bilirubin AST 211 H ALT 345 H Alkaline Phosphatase 109 H Ammonia 49.0 Lactate Dehydrogenase Total Protein 5.4 L Albumin 3.0 L Globulin 2.4 L Albumin/Globulin Ratio 1.3 Urine Color Urine Appearance Urine pH Ur Specific [place] Urine Protein Urine Glucose (UA) Urine Ketones Urine Blood Urine Nitrite Urine Bilirubin Urine Urobilinogen Ur Leukocyte Esterase Urine WBC (Auto) Urine RBC (Auto) U Hyaline Cast (Auto) U Epithel Cells (Auto) Urine Bacteria (Auto) Ur Random Creatinine 13.1 U Random Total Protein 15.5 H Protein/Creatinin Ratio 1.2 H Urine Opiates Screen Ur Methadone, Qual Urine Barbiturates Ur Phencyclidine (PCP) U Amphetamin/Meth Scrn MDMA (Ecstasy) Screen U Benzodiazepines Scrn Ur Cocaine Metabolite U Marijuana (THC) Screen Hepatitis A IgM Ab Hep Bs Antigen Hep Bs Ag Confirmation Hep B Core IgM Ab Hepatitis C Ab (EIA) Hep C Ab Signal/Cutoff SARS-CoV-2, RNA, NAAT Blood Type Antibody Screen Screen Crossmatch 06/05/22 06/05/22 06/05/22 17:41 17:41 Unknown WBC 22.43 H RBC 3.38 L Hgb 9.9 L Hct 28.6 L MCV 84.6 MCH 29.3 MCHC 34.6 RDW Std Deviation 45.8 RDW Coeff of [place] 14.9 H Plt Count 210 MPV 12.0 Immature Gran % (Auto) 2.3 Neut % (Auto) 80.0 Lymph % (Auto) 10.3 Payne % (Auto) 7.3 Eos % (Auto) 0.0 Baso % (Auto) 0.1 Reticulocyte % (Auto) Neut # (Auto) 17.95 H Lymph # (Auto) 2.30 Payne # (Auto) 1.64 H Eos # (Auto) 0.00 Baso # (Auto) 0.02 Reticulocyte # Immature Gran # (Auto) 0.52 H Absolute Nucleated RBC 0.02 H Nucleated RBC % (auto) 0.1 Polychromasia Peripher Smr Path Cons PT INR APTT PTT Ratio Fibrinogen Cord ABG pH Cord ABG pCO2 Cord ABG pO2 Cord ABG HCO3 Cord ABG Base Excess Cord ABG O2 Sat Cord VBG pH Cord VBG pCO2 Cord VBG pO2 Cord VBG HCO3 Cord VBG Base Excess Cord VBG O2 Sat Blood Gas Comments Sodium Potassium Chloride Carbon Dioxide Anion Gap BUN Creatinine Est Cr Clr Drug Dosing Est GFR ( Amer) Est GFR (Non-Af Amer) BUN/Creatinine Ratio Glucose Calcium Magnesium Magnesium (Sulf Ther) Total Bilirubin Direct Bilirubin AST ALT Alkaline Phosphatase Ammonia Lactate Dehydrogenase 377 H Total Protein Albumin Globulin Albumin/Globulin Ratio Urine Color Red Urine Appearance Cloudy A Urine pH 5.0 Ur Specific [place] 1.013 Urine Protein 2+ H Urine Glucose (UA) Negative Urine Ketones Negative Urine Blood 3+ H Urine Nitrite Positive A Urine Bilirubin 1+ H Urine Urobilinogen Negative Ur Leukocyte Esterase 1+ H Urine WBC (Auto) 10-30 H Urine RBC (Auto) >30 H U Hyaline Cast (Auto) 1-5 U Epithel Cells (Auto) 5-10 H Urine Bacteria (Auto) Negative Ur Random Creatinine U Random Total Protein Protein/Creatinin Ratio Urine Opiates Screen Ur Methadone, Qual Urine Barbiturates Ur Phencyclidine (PCP) U Amphetamin/Meth Scrn MDMA (Ecstasy) Screen U Benzodiazepines Scrn Ur Cocaine Metabolite U Marijuana (THC) Screen Hepatitis A IgM Ab Hep Bs Antigen Hep Bs Ag Confirmation Hep B Core IgM Ab Hepatitis C Ab (EIA) Hep C Ab Signal/Cutoff SARS-CoV-2, RNA, NAAT Blood Type Antibody Screen Screen Crossmatch 06/05/22 06/06/22 06/06/22 Unknown 06:03 06:03 WBC 20.79 H RBC 3.11 L Hgb 9.0 L Hct 26.7 L MCV 85.9 MCH 28.9 MCHC 33.7 RDW Std Deviation 46.4 H RDW Coeff of [place] 14.9 H Plt Count 213 MPV 11.6 Immature Gran % (Auto) Neut % (Auto) Lymph % (Auto) Payne % (Auto) Eos % (Auto) Baso % (Auto) Reticulocyte % (Auto) Neut # (Auto) Lymph # (Auto) Payne # (Auto) Eos # (Auto) Baso # (Auto) Reticulocyte # Immature Gran # (Auto) Absolute Nucleated RBC Nucleated RBC % (auto) Polychromasia Peripher Smr Path Cons PT INR APTT PTT Ratio Fibrinogen Cord ABG pH Cord ABG pCO2 Cord ABG pO2 Cord ABG HCO3 Cord ABG Base Excess Cord ABG O2 Sat Cord VBG pH Cord VBG pCO2 Cord VBG pO2 Cord VBG HCO3 Cord VBG Base Excess Cord VBG O2 Sat Blood Gas Comments Sodium Potassium Chloride Carbon Dioxide Anion Gap BUN Creatinine Est Cr Clr Drug Dosing Est GFR ( Amer) Est GFR (Non-Af Amer) BUN/Creatinine Ratio Glucose Calcium Magnesium Magnesium (Sulf Ther) Total Bilirubin Direct Bilirubin AST ALT Alkaline Phosphatase Ammonia Lactate Dehydrogenase Total Protein Albumin Globulin Albumin/Globulin Ratio Urine Color Urine Appearance Urine pH Ur Specific [place] Urine Protein Urine Glucose (UA) Urine Ketones Urine Blood Urine Nitrite Urine Bilirubin Urine Urobilinogen Ur Leukocyte Esterase Urine WBC (Auto) Urine RBC (Auto) U Hyaline Cast (Auto) U Epithel Cells (Auto) Urine Bacteria (Auto) Ur Random Creatinine 57.8 U Random Total Protein 303.1 H Protein/Creatinin Ratio 5.2 H Urine Opiates Screen Ur Methadone, Qual Urine Barbiturates Ur Phencyclidine (PCP) U Amphetamin/Meth Scrn MDMA (Ecstasy) Screen U Benzodiazepines Scrn Ur Cocaine Metabolite U Marijuana (THC) Screen Hepatitis A IgM Ab Hep Bs Antigen Hep Bs Ag Confirmation Hep B Core IgM Ab Hepatitis C Ab (EIA) Hep C Ab Signal/Cutoff SARS-CoV-2, RNA, NAAT Blood Type A Negative Antibody Screen Cancelled Screen Negative Crossmatch 06/06/22 06/06/22 06/06/22 08:28 08:28 15:53 WBC 19.09 H RBC 3.06 L Hgb 8.8 L Hct 26.7 L MCV 87.3 MCH 28.8 MCHC 33.0 RDW Std Deviation 48.7 H RDW Coeff of [place] 15.2 H Plt Count 233 MPV 11.1 Immature Gran % (Auto) 2.7 Neut % (Auto) 67.9 Lymph % (Auto) 21.1 Payne % (Auto) 8.0 Eos % (Auto) 0.1 Baso % (Auto) 0.2 Reticulocyte % (Auto) Neut # (Auto) 12.98 H Lymph # (Auto) 4.03 H Payne # (Auto) 1.53 H Eos # (Auto) 0.01 Baso # (Auto) 0.03 Reticulocyte # Immature Gran # (Auto) 0.51 H Absolute Nucleated RBC 0.02 H Nucleated RBC % (auto) 0.1 Polychromasia Peripher Smr Path Cons PT INR APTT PTT Ratio Fibrinogen Cord ABG pH Cord ABG pCO2 Cord ABG pO2 Cord ABG HCO3 Cord ABG Base Excess Cord ABG O2 Sat Cord VBG pH Cord VBG pCO2 Cord VBG pO2 Cord VBG HCO3 Cord VBG Base Excess Cord VBG O2 Sat Blood Gas Comments Sodium 138 D Potassium 4.2 Chloride 107 Carbon Dioxide 27 Anion Gap 4 BUN 22 Creatinine 1.07 Est Cr Clr Drug Dosing 102.3 Est GFR ( Amer) 80.1 Est GFR (Non-Af Amer) 69.1 BUN/Creatinine Ratio 20.6 H Glucose 92 Calcium 7.7 L Magnesium Magnesium (Sulf Ther) Total Bilirubin 0.2 Direct Bilirubin AST 115 H ALT 246 H Alkaline Phosphatase 100 Ammonia Lactate Dehydrogenase 267 H Total Protein 5.4 L Albumin 2.9 L Globulin 2.5 Albumin/Globulin Ratio 1.2 Urine Color Urine Appearance Urine pH Ur Specific [place] Urine Protein Urine Glucose (UA) Urine Ketones Urine Blood Urine Nitrite Urine Bilirubin Urine Urobilinogen Ur Leukocyte Esterase Urine WBC (Auto) Urine RBC (Auto) U Hyaline Cast (Auto) U Epithel Cells (Auto) Urine Bacteria (Auto) Ur Random Creatinine U Random Total Protein Protein/Creatinin Ratio Urine Opiates Screen Ur Methadone, Qual Urine Barbiturates Ur Phencyclidine (PCP) U Amphetamin/Meth Scrn MDMA (Ecstasy) Screen U Benzodiazepines Scrn Ur Cocaine Metabolite U Marijuana (THC) Screen Hepatitis A IgM Ab Hep Bs Antigen Hep Bs Ag Confirmation Hep B Core IgM Ab Hepatitis C Ab (EIA) Hep C Ab Signal/Cutoff SARS-CoV-2, RNA, NAAT Blood Type Antibody Screen Screen Crossmatch 06/06/22 06/06/22 06/06/22 15:53 15:53 22:15 WBC RBC Hgb Hct MCV MCH MCHC RDW Std Deviation RDW Coeff of [place] Plt Count MPV Immature Gran % (Auto) Neut % (Auto) Lymph % (Auto) Payne % (Auto) Eos % (Auto) Baso % (Auto) Reticulocyte % (Auto) Neut # (Auto) Lymph # (Auto) Payne # (Auto) Eos # (Auto) Baso # (Auto) Reticulocyte # Immature Gran # (Auto) Absolute Nucleated RBC Nucleated RBC % (auto) Polychromasia Peripher Smr Path Cons PT 9.9 INR 0.9 APTT PTT Ratio Fibrinogen Cord ABG pH Cord ABG pCO2 Cord ABG pO2 Cord ABG HCO3 Cord ABG Base Excess Cord ABG O2 Sat Cord VBG pH Cord VBG pCO2 Cord VBG pO2 Cord VBG HCO3 Cord VBG Base Excess Cord VBG O2 Sat Blood Gas Comments Sodium 139 Potassium 4.5 Chloride 107 Carbon Dioxide 28 Anion Gap 4 BUN 20 Creatinine 0.89 Est Cr Clr Drug Dosing 123.0 Est GFR ( Amer) 100.1 Est GFR (Non-Af Amer) 86.4 BUN/Creatinine Ratio 22.5 H Glucose 100 H Calcium 7.8 L Magnesium 2.5 H Magnesium (Sulf Ther) Total Bilirubin Direct Bilirubin AST ALT Alkaline Phosphatase Ammonia Lactate Dehydrogenase Total Protein Albumin Globulin Albumin/Globulin Ratio Urine Color [place] Urine Appearance Clear Urine pH 6.5 Ur Specific [place] 1.011 Urine Protein Negative Urine Glucose (UA) Negative Urine Ketones Negative Urine Blood 3+ H Urine Nitrite Negative Urine Bilirubin Negative Urine Urobilinogen Negative Ur Leukocyte Esterase 1+ H Urine WBC (Auto) 10-30 H Urine RBC (Auto) >30 H U Hyaline Cast (Auto) 1-5 U Epithel Cells (Auto) >30 H Urine Bacteria (Auto) Negative Ur Random Creatinine U Random Total Protein Protein/Creatinin Ratio Urine Opiates Screen Ur Methadone, Qual Urine Barbiturates Ur Phencyclidine (PCP) U Amphetamin/Meth Scrn MDMA (Ecstasy) Screen U Benzodiazepines Scrn Ur Cocaine Metabolite U Marijuana (THC) Screen Hepatitis A IgM Ab Hep Bs Antigen Hep Bs Ag Confirmation Hep B Core IgM Ab Hepatitis C Ab (EIA) Hep C Ab Signal/Cutoff SARS-CoV-2, RNA, NAAT Blood Type Antibody Screen Screen Crossmatch 06/06/22 06/07/22 06/07/22 22:15 05:56 05:56 WBC 17.07 H RBC 3.13 L Hgb 9.0 L Hct 27.4 L MCV 87.5 MCH 28.8 MCHC 32.8 RDW Std Deviation 49.1 H RDW Coeff of [place] 15.4 H Plt Count 231 MPV 11.0 Immature Gran % (Auto) 2.9 Neut % (Auto) 57.2 Lymph % (Auto) 30.8 Payne % (Auto) 7.8 Eos % (Auto) 0.8 Baso % (Auto) 0.5 Reticulocyte % (Auto) Neut # (Auto) 9.78 H Lymph # (Auto) 5.26 H Payne # (Auto) 1.33 H Eos # (Auto) 0.13 Baso # (Auto) 0.08 Reticulocyte # Immature Gran # (Auto) 0.49 H Absolute Nucleated RBC 0.05 H Nucleated RBC % (auto) 0.3 Polychromasia 1+ Peripher Smr Path Cons PT INR APTT PTT Ratio Fibrinogen Cord ABG pH Cord ABG pCO2 Cord ABG pO2 Cord ABG HCO3 Cord ABG Base Excess Cord ABG O2 Sat Cord VBG pH Cord VBG pCO2 Cord VBG pO2 Cord VBG HCO3 Cord VBG Base Excess Cord VBG O2 Sat Blood Gas Comments Sodium 138 Potassium 4.5 Chloride 107 Carbon Dioxide 28 Anion Gap 3 BUN 16 Creatinine 0.73 Est Cr Clr Drug Dosing 149.9 Est GFR ( Amer) 127.2 Est GFR (Non-Af Amer) 109.7 BUN/Creatinine Ratio 21.9 H Glucose 78 Calcium 8.0 L Magnesium Magnesium (Sulf Ther) Total Bilirubin 0.2 Direct Bilirubin AST 54 H ALT 154 H Alkaline Phosphatase 91 Ammonia Lactate Dehydrogenase Total Protein 5.3 L Albumin 2.8 L Globulin 2.5 Albumin/Globulin Ratio 1.1 Urine Color Urine Appearance Urine pH Ur Specific [place] Urine Protein Urine Glucose (UA) Urine Ketones Urine Blood Urine Nitrite Urine Bilirubin Urine Urobilinogen Ur Leukocyte Esterase Urine WBC (Auto) Urine RBC (Auto) U Hyaline Cast (Auto) U Epithel Cells (Auto) Urine Bacteria (Auto) Ur Random Creatinine 46.4 U Random Total Protein 22.3 H Protein/Creatinin Ratio 0.5 H Urine Opiates Screen Ur Methadone, Qual Urine Barbiturates Ur Phencyclidine (PCP) U Amphetamin/Meth Scrn MDMA (Ecstasy) Screen U Benzodiazepines Scrn Ur Cocaine Metabolite U Marijuana (THC) Screen Hepatitis A IgM Ab Hep Bs Antigen Hep Bs Ag Confirmation Hep B Core IgM Ab Hepatitis C Ab (EIA) Hep C Ab Signal/Cutoff SARS-CoV-2, RNA, NAAT Blood Type Antibody Screen Screen Crossmatch
[2022-06-09 23:37] LABS: ANCA Screen Negative (Negative); Anti Cardiolipin Ab IgG <2.0 GPL-U/mL (<20.0); Anti Cardiolipin Ab IgM <2.0 MPL-U/mL (<20.0); Anti Nuclear Antibody Screen NEGATIVE (NEGATIVE); Anti-Cardiolipin Ab IgA <2.0 APL-U/mL (<20.0); Anti-dsDNA Recombinant <1 IU/mL; B2 Glycoprotein IgA <2.0 U/mL (<20.0); B2 Glycoprotein IgG <2.0 U/mL (<20.0); B2 Glycoprotein IgM <2.0 U/mL (<20.0); Complement C3 116 mg/dL (83-193); Complement Total(CH50) 58 U/mL (31-60); Myeloperoxidase Ab <1.0 AI (<1.0); Phosphatidylser Prothrom IgG <9 U (<=30); Phosphatidylserine ProthromIgM <9 U (<=30); Proteinase-3 AB <1.0 AI (<1.0)
== END 2022-06-07 10:27 | disposition home or self-care (01) | DRG 805 ==
LOC: OPB 14:36 → 4S1 14:37 → 4E2 06-05 22:00